=== PATIENT | male | born 1955 | race Caucasian/White ===

== ENCOUNTER → 2016-04-09 | Outpatient (CLI) | payer BC ==
--- NOTE | 2016-04-09 15:57 | DIAGNOSTIC IMAGING REPORT ---
CHEST 2 VIEWS ROUTINE CLINICAL HISTORY: R05 cough. Dyspnea. COMPARISON STUDY: No previous studies for comparison. FINDINGS: The bones soft tissues and hemidiaphragms are normal. The cardiomediastinal silhouette is normal. The lungs are clear. The pulmonary vasculature is normal. IMPRESSION: Negative chest. Electronically signed by: Mack Willard M.D. 04/09/2016 3:56 PM Dictated Date/Time: 04/09/2016 3:55 PM
[2016-04-09 16:27] LABS: BASO % 0.2 %; BASO ABS # 0.01 K/uL (0-0.2); COMPLETE YES; HEMATOCRIT 41.9 % (42-52); IG% 0.2 %; LYMPH % 42.1 %; LYMPH ABS # 2.67 K/uL (1.2-3.4); MEAN CELL VOLUME 85.7 fL (80-100); MEAN CORPUSCULAR HEMOGLOBIN 29.9 pg (25-34); MEAN CORPUSCULAR HGB CONC 34.8 g/dl (32-36); MEAN PLATELET VOLUME 9.3 fL (7.4-10.4); MONO % 6.9 %; NEUT % 47.6 %; PLATELET COUNT 189 K/uL (130-400); RED BLOOD COUNT 4.89 M/uL (4.7-6.1); WHITE BLOOD COUNT 6.34 K/uL (4.8-10.8)
== END | disposition home or self-care (01) ==
LOC: C.LAB 15:26
PROVIDERS: ATTEND Family Medicine
DX: R05 Cough (principal)

== ENCOUNTER 2021-11-21 09:03 | Inpatient (IN) ==
--- NOTE | 2021-11-21 09:19 | Emergency Department Note ---
Impression & Plan Acute renal failure (ARF), Hypertension, Chest tightness ED Provider Note NAME: MARIOLA NUNEZ AGE: 66 SEX: M : 1955 ARRIVES VIA: Walk-In INFORMANT: Patient, ED PROVIDER(S): Agus Potter MD Chief Complaint: Fatigue, abnormal labs HPI: Patient presents due to concern for abnormal lab work that was done through [facility] cardiology office [place] on Wednesday. Patient was told that he had worsening kidney function. Patient denies any shortness of breath but does have occasional chest tightness which seems to improve with activity as well as taking a big deep breath patient denies any shortness of breath but has had increasing fatigue and worsening lower extremity edema which has not imp roved. The patient has also had persistent elevated blood pressure. Patient has tried to cut out salt from the diet. Patient denies any supplements or stimulants alcohol or tobacco use. The patient does drink 1 cup of coffee. Patient's blood work was done through [facility]. Patient was recently seen due to concern for some leg swelling did have an echo completed which was grossly unremarkable. BNP was slightly elevated. Patient was started on hydrochlorothiazide. Patient reportedly had outpatient blood work recently which showed poor kidney function. At the time of the patient's assessment on November 07 the patient had a BUN/creatinine of 33 and 1.38 respectively. BNP at that time was 151. Patient had normal white count H&H and platelet count. ROS: See HPI for pertinent positives and negatives. A total of 10 systems were reviewed and otherwise negative. Past medical history: See below Surgical history: See below Social history: See below Physical Exam: GENERAL: NAD, wearing a mask, non-toxic. Wearing glasses. EYE EXAM: Normal conjunctiva. PERRL, no anisocoria and EOM's grossly intact w/o pain. NECK: Supple, no nuchal rigidity, no adenopathy, non-tender. No signs of meningismus. FROM of the neck with good chin to chest and neck extension. No stridor. LUNGS: Clear to auscultation. Normal chest wall mechanics. HEART: NSR, no MRG. ABDOMEN: Abdomen soft, non-tender, normo-active bowel sounds, no masses, no rebound or guarding. BACK: No CVA TTP. SKIN: No rashes and no bruising. UPPER EXTREMITIES: Upper extremities are grossly normal. LOWER EXTREMITIES: Grossly normal, 3+ symmetric lower extremity edema with no calf pain or erythema. NEURO EXAM: A&O x3, cranial nerves II-XII grossly intact, normal speech, moves all 4 extremities. Differential diagnoses: Reactive airway disease, pneumonia, pneumothorax, COPD, CHF, infections, cardiac ischemia, pulmonary embolism, musculoskeletal, gastrointestinal, as well as other pathologies. Course: Patient was seen and evaluated the bedside. Full history physical exam was performed. EKG interpreted by me Sinus bradycardia with first-degree AV block, rate of 55, prolonged MD, normal QRS, normal axis. No obvious ST elevations. No significant change from comparison November 07, 2021. Imaging Studies: See Below Cardiac monitoring: An order was placed for continuous cardiac monitoring. The monitor shows a rate of 62 with sinus rhythm. MDM: Patient was seen due to concern for weakness fatigue lower extremity swelling and occasional chest tightness. Blood work was obtained along with an EKG troponin BNP chest x-ray. Patient was seen due to concern for abnormal outpatient blood work. I was able to review this which showed a creatinine of 3.1. The patient's blood work today showed normal white count with mild anemia hemoglobin 13.6 with a normal platelet count. The patient does have hyponatremia noted with elevated BUN and creatinine at 86 and 4.2 respectively. Hypocalcemia noted. The patient was ordered calcium for replete meant. Lipase was elevated but the patient did not complain of any abdominal pain or had no pain to palpation on exam but only some bloating. A CT abdomen pelvis noncontrast was ordered. I did speak to the on- call hospitalist Dr. Dalton and the patient was admitted to the medicine service. COVID-negative. Patient CT abdomen pelvis shows nonspecific perin ephric stranding but no peripancreatic stranding. No kidney or ureteral stones. Pancreas appears grossly normal and enhanced. No evidence of diverticulitis. Past Med/Surg History Medical History History of colon cancer Hypertension Hypoalbuminemia Surgical History (Updated 11/21/21 @ 09:33 by Agus Potter MD) No pertinent past surgical history Social History Smoking Status: Never smoker Second Hand Exposure: No; Do You Dip or Chew Tobacco: No; Tobacco Cessation Education Requested by Patient: No Hx Alcohol Use: No Hx Substance Use: No Preferred Language: Kyrgyz Communication Ability: Effective Design Lead Required: No Beliefs That Will Affect Care: None Current Living Situation: Spouse Current Living Situation Comment: lives with Other Information That Helps Us Care for You: No Feels Safe at Home: Yes Safety Concerns: Feels Safe At This Time Assistive Devices: Glasses Allergies Allergies Allergy/AdvReac Type Severity Reaction Status Date / Time No Known Allergies Allergy Unverified 03/26/13 13:42 Home Meds Home Medications Medication Instructions Recorded Confirmed atorvastatin 40 mg tablet 40 mg PO DAILY 11/21/21 11/21/21 lisinopril 10 mg tablet 10 mg PO DAILY 11/21/21 11/21/21 Previous Rx's Medication Instructions Recorded hydrochlorothiazide 25 mg tablet 25 mg PO DAILY #14 tabs 11/07/21 Results & Data (ED) Vital Signs Vital Signs - 24 hr 11/21/21 09:10 11/21/21 09:33 11/21/21 09:30 Temperature 36.1 C L Temperature Source Temporal Artery Scan Pulse Rate 61 51 L Pulse Rate from SpO2 Sensor Pulse Rhythm Regular Respiratory Rate 16 20 Respiratory Effort / Characteristics Non-Labored Respiratory Depth Normal Blood Pressure 174/99 H 163/101 H Blood Pressure Mean 124 121 Pulse Oximetry 97 97 Oxygen Delivery Method Room Air Room Air Sepsis Recent Fever Within 48 Hours No Sepsis New/Unexplained Change in Mental Status No Sepsis Action Taken by Nursing No Action Required 11/21/21 09:30 11/21/21 10:00 11/21/21 10:00 Temperature Temperature Source Pulse Rate 60 53 L Pulse Rate from SpO2 Sensor 59 L 52 L Pulse Rhythm Respiratory Rate 17 11 L Respiratory Effort / Characteristics Respiratory Depth Blood Pressure 169/119 H Blood Pressure Mean 135 Pulse Oximetry 97 97 Oxygen Delivery Method Sepsis Recent Fever Within 48 Hours Sepsis New/Unexplained Change in Mental Status Sepsis Action Taken by Alf Medications Current Medication List: was personally reviewed by me Laboratory Data Attestation: I reviewed the patient's lab results. Result diagrams: 11/21/21 09:25 11/21/21 09:25 Lab Results 11/21/21 11/21/21 11/21/21 Range/Units 09:25 09:25 09:25 WBC 6.66 (4.8-10.8) K/ul RBC 4.58 L (4.63-6.08) M/uL Hgb 13.6 L (14.0-18.0) g/dl Hct 39.4 L (40.1-51.0) % MCV 86.0 (80.0-100.0) fL MCH 29.7 (25.0-34.0) pg MCHC 34.5 (32.0-36.0) g/dL RDW Std Deviation 39.3 (36.4-46.3) fL RDW Coeff of Perez 12.6 (11.5-14.5) % Plt Count 145 (130-400) K/uL MPV 9.1 L (9.4-12.4) fL Immature Gran % (Auto) 0.2 % Neut % (Auto) 62.6 % Lymph % (Auto) 19.4 % [place] % (Auto) 13.5 % Eos % (Auto) 3.8 % Baso % (Auto) 0.5 % Neut # (Auto) 4.18 (1.4-6.5) K/uL Lymph # (Auto) 1.29 (1.2-3.4) K/uL [place] # (Auto) 0.90 H (0.24-0.82) K/uL Eos # (Auto) 0.25 (0-0.50) K/uL Baso # (Auto) 0.03 (0-0.2) K/uL Immature Gran # (Auto) 0.01 (0.00-0.02) K/uL Sodium 134 L (136-145) mmol/L Potassium 5.1 (3.5-5.1) mmol/L Chloride 105 (98-107) mmol/L Carbon Dioxide 24 (21-32) mmol/L Anion Gap 5 (3-11) BUN 86 H (6-23) mg/dl Creatinine 4.24 H (0.6-1.4) mg/dl Est Cr Clr Drug Dosing 19.9 ml/min Est GFR ( Amer) 15.8 ml/min Est GFR (Non-Af Amer) 13.6 ml/min BUN/Creatinine Ratio 20.3 H (10-20) Glucose 84 (70-99(Fasting)) mg/dl Calcium 7.5 L (8.5-10.1) mg/dl Total Bilirubin 0.2 (0.2-1.0) mg/dl AST 21 (13-39) U/L ALT 19 (7-52) U/L Alkaline Phosphatase 94 (34-104) U/L Troponin I High Sens 12.8 D (0-20) pg/ml B-Natriuretic Peptide 58 (0-100) pg/ml Total Protein 5.7 L (6.0-8.3) gm/dl Albumin 2.5 L (3.4-5.0) gm/dl Globulin 3.2 (2.5-4.0) gm/dl Albumin/Globulin Ratio 0.8 L (0.9-2) Lipase 165 H (11-82) U/L Urine Color Urine Appearance (Clear) Urine pH (4.5-7.5) Ur Specific [place] (1.000-1.030) Urine Protein (Negative) Urine Glucose (UA) (Negative) Urine Ketones (Negative) Urine Blood (Negative) Urine Nitrite (Negative) Urine Bilirubin (Negative) Urine Urobilinogen (Negative) Ur Leukocyte Esterase (Negative) Urine WBC (Auto) (0-5) /hpf Urine RBC (Auto) (0-4) /hpf U Hyaline Cast (Auto) (0-5) /lpf U Epithel Cells (Auto) (0-5) /lpf Urine Bacteria (Auto) (Negative) Ur Renal Epithelial Cell Uric Acid Crystals (None Prsent) Ur Random Creatinine mg/dl U Random Total Protein (0-11.9) mg/dl Ur Random Sodium mmol/L Protein/Creatinin Ratio (0-0.2) 11/21/21 11/21/21 Range/Units 10:22 10:22 WBC (4.8-10.8) K/ul RBC (4.63-6.08) M/uL Hgb (14.0-18.0) g/dl Hct (40.1-51.0) % MCV (80.0-100.0) fL MCH (25.0-34.0) pg MCHC (32.0-36.0) g/dL RDW Std Deviation (36.4-46.3) fL RDW Coeff of Perez (11.5-14.5) % Plt Count (130-400) K/uL MPV (9.4-12.4) fL Immature Gran % (Auto) % Neut % (Auto) % Lymph % (Auto) % [place] % (Auto) % Eos % (Auto) % Baso % (Auto) % Neut # (Auto) (1.4-6.5) K/uL Lymph # (Auto) (1.2-3.4) K/uL [place] # (Auto) (0.24-0.82) K/uL Eos # (Auto) (0-0.50) K/uL Baso # (Auto) (0-0.2) K/uL Immature Gran # (Auto) (0.00-0.02) K/uL Sodium (136-145) mmol/L Potassium (3.5-5.1) mmol/L Chloride (98-107) mmol/L Carbon Dioxide (21-32) mmol/L Anion Gap (3-11) BUN (6-23) mg/dl Creatinine (0.6-1.4) mg/dl Est Cr Clr Drug Dosing ml/min Est GFR ( Amer) ml/min Est GFR (Non-Af Amer) ml/min BUN/Creatinine Ratio (10-20) Glucose (70-99(Fasting)) mg/dl Calcium (8.5-10.1) mg/dl Total Bilirubin (0.2-1.0) mg/dl AST (13-39) U/L ALT (7-52) U/L Alkaline Phosphatase (34-104) U/L Troponin I High Sens (0-20) pg/ml B-Natriuretic Peptide (0-100) pg/ml Total Protein (6.0-8.3) gm/dl Albumin (3.4-5.0) gm/dl Globulin (2.5-4.0) gm/dl Albumin/Globulin Ratio (0.9-2) Lipase (11-82) U/L Urine Color Yellow Urine Appearance Clear (Clear) Urine pH 6.0 (4.5-7.5) Ur Specific [place] 1.010 (1.000-1.030) Urine Protein 4+ H (Negative) Urine Glucose (UA) Negative (Negative) Urine Ketones Negative (Negative) Urine Blood 1+ H (Negative) Urine Nitrite Negative (Negative) Urine Bilirubin Negative (Negative) Urine Urobilinogen Negative (Negative) Ur Leukocyte Esterase Negative (Negative) Urine WBC (Auto) 1-5 (0-5) /hpf Urine RBC (Auto) 5-10 H (0-4) /hpf U Hyaline Cast (Auto) 5-10 H (0-5) /lpf U Epithel Cells (Auto) >30 H (0-5) /lpf Urine Bacteria (Auto) Negative (Negative) Ur Renal Epithelial Cell Not Reportable Uric Acid Crystals Present A (None Prsent) Ur Random Creatinine 66.7 mg/dl U Random Total Protein 727.4 H (0-11.9) mg/dl Ur Random Sodium 34 mmol/L Protein/Creatinin Ratio 10.9 H (0-0.2) Administered Medications Discontinued Medications Calcium Gluconate () 1,000 mg in 60 mls @ 240 mls/hr IV NOW STA Stop: 11/21/21 10:39 Last Infusion: 11/21/21 10:53 Dose: 0 mls/hr Documented By: Admin: 11/21/21 10:35 Dose: 240 mls/hr Documented By: MNE Imaging Data Radiologist's Impression: Chest X-Ray 11/21/21 09:33 XR chest 1V portable HISTORY: Atypical Chest Pain COMPARISON: Chest 11/07/2020. FINDINGS: There are low lung volumes. No focal lung consolidations to suggest a pneumonia. No evidence for pulmonary edema. The cardiac silhouette remains mildly enlarged. No pleural effusions. No pneumothorax. IMPRESSION: No significant change compared to the prior study. No acute process. ACT 112: Negative or not required by law. Electronically signed by: José Miguel Astorga M.D. 11/21/2021 10:03 AM Abdomen/Pelvis CT 11/21/21 10:25 CT SCAN OF THE ABDOMEN AND PELVIS WITHOUT IV CONTRAST CLINICAL HISTORY: Acute renal insufficiency. Elevated lipase. COMPARISON STUDY: No priors. TECHNIQUE: CT scan of the abdomen and pelvis is performed from the lung bases to the proximal femora. Images are reviewed in the axial, sagittal, and coronal planes. IV contrast was not administered for this examination. A dose lowering technique was utilized adhering to the principles of ALARA. CT DOSE: 857.24 mGycm FINDINGS: Lung bases: The heart is mildly enlarged and without pericardial effusion. The lung bases are clear noting bibasilar scarring/atelectasis. There is a tiny hiatal hernia. Liver: The unenhanced liver is normal in size, contour, and attenuation. There is no intrahepatic biliary ductal dilatation. Gallbladder: Unremarkable. Spleen: Normal in size and attenuation. Pancreas: The unenhanced pancreas is grossly unremarkable. The duct is normal in caliber. No peripancreatic fluid is seen. Adrenal glands: Unremarkable. Kidneys: The unenhanced kidneys are normal in size and without hydronephrosis. There are numerous punctate nonobstructing calculi seen bilaterally. No ureteral stone is seen. There is no evidence of contour deforming renal mass lesion. Nonspecific perinephric stranding is seen bilaterally. Abdominal vasculature: The abdominal aorta is normal in course and caliber. Bowel: There is mild colonic diverticulosis without CT evidence of acute diverticulitis. Mild fecal retention is seen throughout the colon. The appendix is not identified and reported surgically absent. Peritoneum: There is no intraperitoneal free air or abdominal ascites. There is a fat-containing umbilical hernia. Lymphadenopathy: None. Pelvic viscera: The bladder, prostate, and seminal vesicles are normal as visualized. There is a fat-containing left inguinal hernia. Skeletal structures: No lytic or blastic lesions are seen. IMPRESSION: 1. There are punctate nonobstructing renal calculi seen bilaterally. 2. There is no ureteral stone or hydronephrosis. 3. Nonspecific peripancreatic stranding is seen bilaterally. Correlate with clinical findings and urinalysis. 4. The unenhanced pancreas is normal as imaged. 5. Mild colonic diverticulosis without CT evidence of acute diverticulitis. 6. Additional findings as above. ACT 112: Negative or not required by law. Electronically signed by: Macario Torrez M.D. 11/21/2021 11:19 AM Discharge Plan Visit Data Chief Complaint: Abnormal Labs/Diagnostic Testing Stated Complaint: RENAL ISSUES ED Provider: Agus Potter Discharge Problem: Acute renal failure (ARF), Hypertension, Chest tightness Patient Disposition: Admitted As Inpatient Discharge Instructions Interventions: ED Discharge Assessment Last Done: 11/21/21 14:15
[2021-11-21 09:44] LABS: Basophils # (auto) 0.03 K/uL (0-0.2); Basophils % (auto) 0.5 %; Eosinophils # (auto) 0.25 K/uL (0-0.50); Eosinophils % (auto) 3.8 %; Hematocrit (blood only) 39.4 % (40.1-51.0); Hemoglobin 13.6 g/dl (14.0-18.0); Immature Granulocytes # (auto) 0.01 K/uL (0.00-0.02); Immature Granulocytes % (auto) 0.2 %; Lymphocytes # (auto) 1.29 K/uL (1.2-3.4); Lymphocytes % (auto) 19.4 %; Mean Corpuscular Hemoglobin 29.7 pg (25.0-34.0); Mean Corpuscular Hgb Conc 34.5 g/dL (32.0-36.0); Mean Platelet Volume 9.1 fL (9.4-12.4); Monocytes % (auto) 13.5 %; Neutrophils # (auto) 4.18 K/uL (1.4-6.5); Neutrophils % (auto) 62.6 %; Platelet Count 145 K/uL (130-400); RDW Coefficient of Variation 12.6 % (11.5-14.5); RDW Standard Deviation 39.3 fL (36.4-46.3); Red Blood Count 4.58 M/uL (4.63-6.08); White Blood Count 6.66 K/ul (4.8-10.8)
--- NOTE | 2021-11-21 10:04 | XRay Report ---
XR chest 1V portable HISTORY: Atypical Chest Pain COMPARISON: Chest 11/07/2020. FINDINGS: There are low lung volumes. No focal lung consolidations to suggest a pneumonia. No evidenc e for pulmonary edema. The cardiac silhouette remains mildly enlarged. No pleural effusions. No pneum othorax. IMPRESSION: No significant change compared to the prior study. No acute process. ACT 112: Negative or not required by law. Electronically signed by: José Miguel Astorga M.D. 11/21/2021 10:03 AM
[2021-11-21 10:09] LABS: Albumin Globulin Ratio 0.8 (0.9-2); Albumin Level 2.5 gm/dl (3.4-5.0); BUN Creatinine Ratio 20.3 (10-20); Bilirubin,Total 0.2 mg/dl (0.2-1.0); Calcium 7.5 mg/dl (8.5-10.1); Creatinine Clr Calc Pharmacy 19.9 ml/min; Est GFR (African American) 15.8 ml/min; Est GFR (Non-African American) 13.6 ml/min; Globulin 3.2 gm/dl (2.5-4.0); Potassium 5.1 mmol/L (3.5-5.1); Total Protein 5.7 gm/dl (6.0-8.3)
[2021-11-21 10:11] LABS: Troponin I High Sensitivity 12.8 pg/ml (0-20)
[2021-11-21] MEDS ORDERED: CALCIUM GLUCONATE 1,000 MG/60 ML BAG IV STA (10:25)
[2021-11-21 10:40] LABS: Appearance Urine Clear (Clear); Bacteria Urine Automated Negative (Negative); Bilirubin Urine Negative (Negative); Blood Urine 1+ (Negative); Color Urine Yellow; Epithelial Cell Urine Auto >30 /lpf (0-5); Glucose Urine UA Negative (Negative); Ketones Urine Negative (Negative); Leukocyte Esterase Urine Negative (Negative); Nitrite Urine Negative (Negative); Protein Urine 4+ (Negative); Urobilinogen Urine Negative (Negative)
--- NOTE | 2021-11-21 10:40 | History & Physical Report ---
Date of Service November 21, 2021 Assessment & Plan (1) Acute kidney injury: Plan: Fluid status difficult to determine: He has some pitting lower extremity edema and noted his overall body weight is up with proteinuria and hypertension consistent with nephrotic syndrome. However Cr worse with HCTZ, BNP down, mucus membranes are dry and only pitting edema is in his lower extremities suggesting some intravascular depletion. Discussed with Dr Johnson and will defer his fluid management to nephrology. No obstructive uropathy seen on CT A/P Suspected nephrotic syndrome - will defer need for biopsy and further workup for this to nephrology. No exacerbating cause found in the last two weeks but suspect he has had some proteinuria since COVID with his frothy urine. Dipstick showing proteinuria 30 mg/dl on October 06, 2021 but no prior urine analysis prior to [facility] in [facility] or [facility] [address]. Hold lisinopril, HCTZ and Celebrex No urgent need for dialysis Consult nephrology (2) Proteinuria: Plan: As above (3) Hypertension: Plan: Will start amlodipine pending nephrology review if not starting on diuretics. (4) Bilateral edema of lower extremity: Plan: Suspected nephrotic syndrome +/- venous insufficiency Continue PABLO arceo (5) History of colon cancer: Plan VTE Prophylaxis - heparin 5000 units SQ BID Diet - dialysis renal Disposition - admit to med/tele Admission and Anticipated Discharge Date Admission Date: November 21, 2021 History of Present Illness Chief Complaint: Acute renal failure Primary Care Provider: Ableardo Kirkland MD Mack Hopper is a 66 year old male who presents to the ER with bilateral extremity edema, increasing fatigue, shortness of breath on exertion and chest tightness. He was sent in to the ER by his communications programmer due to worsening renal function. His symptoms have been present and getting worse for the last 2 weeks despite decreasing his salt intake. He also started taking his blood pressure measurements at home and they have been elevated since 2 weeks ago. He was recently seen in the emergency room November 07 for bilateral lower extremity swelling, intermittent chest pain and cough. TTE showed LVEF 60-65% with no significant valve pathology and no regional wall abnormalities. Creatinine was 1.38 at that time. He was started on hydrochlorothiazide 25mg PO daily (ran out two days ago) for the lower extremity edema although no significant pulmonary edema was noted on CXR at that time. He followed up with cardiology 2 days ago and did not feel his lower extremity edema was due to cardiac issue with his weight being up 15 lb. On repeat labs on November 19 his creatinine had increased to 3.19 with BUN 74 while taking the hydrochlorothiazide. Symptomatically he has been getting worse with increasing fatigue, edema, weight and decreased urination. He reports using Celebrex intermittently for chronic back pain - stopped taking this on Wednesday due to worsening renal function. Before then he would take it 2-3 times a week. This is on a background of having COVID-19 pneumonia in August where he was symptomatic for 10 days. He was given Paxlovid at that time. He reports having frothy urine following this which has become more prominent the last 2 weeks. Apart from the hydrochlorothiazide the only new medication he has started was glucosamine which he started two weeks ago - however he has taken this before. Allergies Allergy/AdvReac Type Severity Reaction Status Date / Time No Known Allergies Allergy Unverified 03/26/13 13:42 Home Medications Medication Instructions Recorded Confirmed Type hydrochlorothiazide 25 mg tablet 25 mg PO DAILY #14 tabs 11/07/21 11/21/21 Rx atorvastatin 40 mg tablet 40 mg PO DAILY 11/21/21 11/21/21 History lisinopril 10 mg tablet 10 mg PO DAILY 11/21/21 11/21/21 History Past Med/Surg History Medical History History of colon cancer Hypertension Hypoalbuminemia Surgical History No pertinent past surgical history Social History Smoking Status: Never smoker Second Hand Exposure: No; Do You Dip or Chew Tobacco: No; Tobacco Cessation Education Requested by Patient: No Hx Alcohol Use: No Hx Substance Use: No Preferred Language: Japanese Communication Ability: Effective Audio Video Tech Required: No Beliefs That Will Affect Care: None Current Living Situation: Spouse Current Living Situation Comment: lives with Other Information That Helps Us Care for You: No Feels Safe at Home: Yes Safety Concerns: Feels Safe At This Time Assistive Devices: Glasses Review of Systems Review of Systems: All systems reviewed & are unremarkable except as noted in Subjective (He does note knees and wrist joints started to hurt 2 months ago but this is not unusual for him) Physical Exam Constitutional: WD/WN, vitals as above Eyes: PERRL, conjunctivae normal, anicteric sclerae ENMT: Mouth: + dry oral mucous membranes Neck: trachea midline, no thyromegaly Respiratory: normal respiratory effort, lungs clear to auscultation Cardiovascular: Rate/Rhythm: regular rate and regular rhythm Heart Sounds: no murmur Extremities: normal capillary refill and + pedal edema (pitting 2+ bilateral equal to knees); no calf tenderness Gastrointestinal (Abdomen): normal bowel sounds, soft, nontender, no hepatosplenomegaly Musculoskeletal: no cyanosis or clubbing, extremities motor strength 5/5 Skin: no rashes, warm and dry Neurologic: moves all extremities and awake; no focal motor deficits and not confused Psychiatric: A+Ox3, euthymic affect Genitourinary: no CVA tenderness Results & Data Results & Data ([facility]) Vital Signs (Past 12 Hours) Vital Signs Temp Pulse Resp BP Pulse Ox O2 Del Method 11/21/21 10:00 53 L 11 L 97 11/21/21 10:00 169/119 H 11/21/21 09:30 60 17 97 11/21/21 09:30 163/101 H 11/21/21 09:33 51 L 20 97 Room Air 11/21/21 09:10 36.1 C L 61 16 174/99 H 97 Room Air Laboratory Results Abnormal lab results 11/21/21 11/21/21 11/21/21 Range/Units 09:25 09:25 10:22 RBC 4.58 L (4.63-6.08) M/uL Hgb 13.6 L (14.0-18.0) g/dl Hct 39.4 L (40.1-51.0) % MPV 9.1 L (9.4-12.4) fL [place] # (Auto) 0.90 H (0.24-0.82) K/uL Sodium 134 L (136-145) mmol/L BUN 86 H (6-23) mg/dl Creatinine 4.24 H (0.6-1.4) mg/dl BUN/Creatinine Ratio 20.3 H (10-20) Calcium 7.5 L (8.5-10.1) mg/dl Total Protein 5.7 L (6.0-8.3) gm/dl Albumin 2.5 L (3.4-5.0) gm/dl Albumin/Globulin Ratio 0.8 L (0.9-2) Lipase 165 H (11-82) U/L Urine Protein 4+ H (Negative) Urine Blood 1+ H (Negative) Diagnostic Findings XR chest 1V portable HISTORY: Atypical Chest Pain COMPARISON: Chest 11/07/2020. FINDINGS: There are low lung volumes. No focal lung consolidations to suggest a pneumonia. No evidence for pulmonary edema. The cardiac silhouette remains mildly enlarged. No pleural effusions. No pneumothorax. IMPRESSION: No significant change compared to the prior study. No acute process. Medications Administered ER Medications Given: Calcium gluconate 1000mg IV ECG Indication: chest pain Rate (beats per minute): 55 Rhythm: sinus bradycardia Findings: + 1st degree AV block; no acute ischemic change (low voltage QRS) Comparison ECG Date: from (November 07, 2021) Change: no significant change Code Status & VTE Plan Code Status Full VTE Prophylaxis Plan VTE Prophylaxis will be ordered: Yes PG Care Time/CCT Total # of Minutes Spent Total Time Spent with Patient: Total time spent is greater than 50% in coordination of care (as documented) at patient's floor/unit and/or counseling patient: Coding Level of Care Code 94887 Initial Inpt Care Lvl 3 Diagnoses Acute kidney injury N17.9 Proteinuria R80.9 Hypertension I10 Bilateral edema of lower extremity R60.0 History of colon cancer Z85.038
[2021-11-21 10:55] LABS: Uric Acid Crystals Urine Present (None Prsent)
--- NOTE | 2021-11-21 11:21 | CT Scan Report ---
CT SCAN OF THE ABDOMEN AND PELVIS WITHOUT IV CONTRAST CLINICAL HISTORY: Acute renal insufficiency. Elevated lipase. COMPARISON STUDY: No priors. TECHNIQUE: CT scan of the abdomen and pelvis is performed from the lung bases to the proximal femora. Images are reviewed in the axial, sagittal, and coronal planes. IV contrast was not administered for this examination. A dose lowering technique was utilized adhering to the principles of ALARA. CT DOSE: 857.24 mGycm FINDINGS: Lung bases: The heart is mildly enlarged and without pericardial effusion. The lung bases are clear n oting bibasilar scarring/atelectasis. There is a tiny hiatal hernia. Liver: The unenhanced liver is normal in size, contour, and attenuation. There is no intrahepatic hernandez iary ductal dilatation. Gallbladder: Unremarkable. Spleen: Normal in size and attenuation. Pancreas: The unenhanced pancreas is grossly unremarkable. The duct is normal in caliber. No peripanc reatic fluid is seen. Adrenal glands: Unremarkable. Kidneys: The unenhanced kidneys are normal in size and without hydronephrosis. There are numerous pun ctate nonobstructing calculi seen bilaterally. No ureteral stone is seen. There is no evidence of con tour deforming renal mass lesion. Nonspecific perinephric stranding is seen bilaterally. Abdominal vasculature: The abdominal aorta is normal in course and caliber. Bowel: There is mild colonic diverticulosis without CT evidence of acute diverticulitis. Mild fecal r etention is seen throughout the colon. The appendix is not identified and reported surgically absent . Peritoneum: There is no intraperitoneal free air or abdominal ascites. There is a fat-containing umbi lical hernia. Lymphadenopathy: None. Pelvic viscera: The bladder, prostate, and seminal vesicles are normal as visualized. There is a fat- containing left inguinal hernia. Skeletal structures: No lytic or blastic lesions are seen. IMPRESSION: 1. There are punctate nonobstructing renal calculi seen bilaterally. 2. There is no ureteral stone or hydronephrosis. 3. Nonspecific peripancreatic stranding is seen bilaterally. Correlate with clinical findings and uri nalysis. 4. The unenhanced pancreas is normal as imaged. 5. Mild colonic diverticulosis without CT evidence of acute diverticulitis. 6. Additional findings as above. ACT 112: Negative or not required by law. Electronically signed by: Macario Torrez M.D. 11/21/2021 11:19 AM
[2021-11-21 13:58] LABS: Creatinine Urine Random 66.7 mg/dl; Protein Creatinine Ratio Urine 10.9 (0-0.2); Total Protein Urine Random 727.4 mg/dl (0-11.9)
[2021-11-21] MEDS: ACETAMINOPHEN 325 MG TAB PO PRN (17:02)
--- NOTE | 2021-11-21 17:52 | Nephrology Consultation ---
Date of Consultation November 21, 2021 Assessment & Plan (1) Proteinuria: (2) Acute kidney injury: (3) Bilateral edema of lower extremity: (4) Hypertension: Plan Mack presents with findings of nephrotic syndrome including proteinuria, hypoalbuminemia, and accelerated BP readings. Urine microscopy also notable for hyaline casts and RBCs. He has marked NICHOLAS. Thankfully, he has been non-oliguric. Serum electrolytes are normal. There is no emergent indication for dialysis. ACEi will be held. Volume status demonstrates increased total body water consistent with 3rd spacing fluids in setting of nephrosis but to avoid confounding NICHOLAS with decreased EAV, I have opted to hold diuretics. Mack has NICHOLAS with predominately nephrosis but I cannot exclude a nephritic component. Onset of symptoms following COVID and history complicated by some NSAID use. There is a very wide differential. This includes AIN. However, clinical presentation consistent with membranous or minimal change. I would not exclude ANCA mediated disease or plasma cell disorders. Less likely to be systemic lupus or cryoglobulin mediated. Post infectious GN remains a possibility. Extensive serologic evaluation has been requested today. This includes JUSTIN, ANCA, ESR, C3/C4, SIEP, UPEP, hepatitis B and C serologies. AM labs to include lipid profile. Coags will also be checked. Random urine protein demonstrating 10 g/g proteinuria. I will quantify with 24 hour which will be sent for PEP. Renal duplex requested to help exclude renal vein thrombosis. CT scan reviewed. Kidneys are unobstructed. Due to the degree of renal insufficiency, I would opt to start early aggressive steroid therapy. Presentation predominately nephrotic, start with prednisone 60 mg daily now. Mack is aware that kidney biopsy may ultimately be required to make a definitive diagnosis. For hypertension, a low sodium diet has been provided. HCTZ and lisinopril held. Start amlodipine now. Baseline creatinine 1.38 mg/dL. History of Present Illness Reason for Consultation: NICHOLAS Requesting Physician: Elías Dalton MD Attending Physician: Elías Dalton MD History of Present Illness Mr. Mack Hopper is a 66 year-old male with a history of hypertension, OA/DJD, and hyperlipidemia. He was referred to the ER at [facility] today for evaluation of an elevated serum creatinine. Laboratory studies obtained by BRENDAN Davison following recent evaluation in the cardiology clinic. Mack had been referred to the clinic by his PCP (Dr. Olu Kirkland) for evaluation of fluid retention in his legs. Mack reports sudden onset of lower extremity edema a few weeks ago. He has not had similar symptoms in the past. He presented to the ER at [facility] for evaluation on November 07. Evaluation notable for a serum creatinine of 1.38 mg/dL, serum albumin of 2.6 g/dL,mildly elevated BNP, and chest X-ray demonstrating mild evolving vascular congestion. BP elevated at >180/90 mmHg during the evaluation. Mack was discharged from the ER with close outpatient cardiology follow up arranged. He was then started on HCTZ. He has been taking 25 mg daily since that time with some mild improvement. TTE reviewed which demonstrated normal LV size and function. Mild concentric LVH. No significant valvular heart disease noted. Normal right sided pressures. Mack has been maintained on lisinopril 10 mg daily for hypertension. HCTZ recently added but BP remained above goal. No specifically symptomatic accele rated symptoms reported. Atorvastatin recently added by his PCP for hyperlipidemia. In July, Mack was diagnosed with COVID. He reported some respiratory symptoms which resolved quickly with predominately upper respiratory symptoms, including sinus congestion. No hemoptysis. He was treated with Paxlovid. Some mild chest congestion persisted. Mack developed persistent foamy urine during recovery. F oamy urine has remained a concer. He has also noted some persistent generalized joint pains, particularly involving the hands and knees. He did not specifically endorse synovitis or effusions. He noted some increased pain across the lower back in the SI area within the past ~1 week. Some discomfort persists in this area. He did not specifically endorse any flank pain. Mack has used Celebrex intermittently for joint pains and notes that frequency of use has recently increased. He was taking ~200 mg QHS 3-4 x per week. He does not report any other NSAID use. No recent antibiotic use reported. He has not noticed any facial edema. He has had intermittent swelling in his hands. LE edema improved slightly following the recent addition of HCTZ. He did not notice any change in urine output but reports that he seems slightly less since he was admitted to the hospital today. He does report some mild LUTS which include frequency. He did not describe any gross hematuria or cola colored urine. Mack also reports a rash on his back extending along the flanks predominately on his left side. There are follicular lesions since to a rash he has experienced in the past. He has treated this previously with Hibiclens. Allergies Allergy/AdvReac Type Severity Reaction Status Date / Time No Known Allergies Allergy Unverified 03/26/13 13:42 Home Medications Medication Instructions Recorded Confirmed Type hydrochlorothiazide 25 mg tablet 25 mg PO DAILY #14 tabs 11/07/21 11/21/21 Rx atorvastatin 40 mg tablet 40 mg PO DAILY 11/21/21 11/21/21 History lisinopril 10 mg tablet 10 mg PO DAILY 11/21/21 11/21/21 History Patient History Medical History History of colon cancer Hypertension Hypoalbuminemia Surgical History No pertinent past surgical history Social History Smoking Status: Never smoker Second Hand Exposure: No; Do You Dip or Chew Tobacco: No; Tobacco Cessation Education Requested by Patient: No Hx Alcohol Use: No Hx Substance Use: No Preferred Language: Armenian Communication Ability: Effective Financial Operations Consultant Required: No Beliefs That Will Affect Care: None Current Living Situation: Spouse Current Living Situation Comment: lives with Other Information That Helps Us Care for You: No Feels Safe at Home: Yes Safety Concerns: Feels Safe At This Time Assistive Devices: Glasses Review of Systems Review of Systems: All systems reviewed & are unremarkable except as noted in HPI & below Physical Exam Constitutional: well developed; no acute distress Eyes: + anicteric sclerae; no corneal abnormality Neck: normal visual inspection and trachea midline Respiratory: normal respiratory effort Auscultation: lungs clear to auscultation bilaterally Cardiovascular: Rate/Rhythm: regular rate Heart Sounds: normal S1 and normal S2 Extremities: + edema; no calf tenderness Musculoskeletal: Extremities: no cyanosis and no clubbing Skin: normal turgor and + rash (follicular lesions - NOT vesicles and no pustules - no palpable purpura.) Neurologic: Motor/Sensory: no tremor and no asterixis Psychiatric: Orientation: alert and oriented x 3 Results & Data ([facility]) Vital Signs (Past 12 Hours) Vital Signs Temp Pulse Pulse Pulse Resp BP BP 11/21/21 15:40 80 11/21/21 15:35 11/21/21 15:35 36.5 C 63 18 164/89 H 11/21/21 15:00 88 18 155/96 H 11/21/21 14:30 66 18 187/117 H 11/21/21 12:30 59 L 18 157/101 H 11/21/21 10:00 53 L 11 L 11/21/21 10:00 169/119 H 11/21/21 09:30 60 17 11/21/21 09:30 163/101 H 11/21/21 09:33 51 L 20 11/21/21 09:10 36.1 C L 61 16 174/99 H Pulse Ox O2 Del Method 11/21/21 15:40 11/21/21 15:35 Room Air 11/21/21 15:35 97 Room Air 11/21/21 15:00 98 Room Air 11/21/21 14:30 98 Room Air 11/21/21 12:30 99 Room Air 11/21/21 10:00 97 11/21/21 10:00 11/21/21 09:30 97 11/21/21 09:30 11/21/21 09:33 97 Room Air 11/21/21 09:10 97 Room Air Laboratory Results Laboratory Results - last 24 hr 11/21/21 11/21/21 11/21/21 09:25 09:25 09:25 WBC 6.66 RBC 4.58 L Hgb 13.6 L Hct 39.4 L MCV 86.0 MCH 29.7 MCHC 34.5 RDW Std Deviation 39.3 RDW Coeff of Perez 12.6 Plt Count 145 MPV 9.1 L Immature Gran % (Auto) 0.2 Neut % (Auto) 62.6 Lymph % (Auto) 19.4 Sanders % (Auto) 13.5 Eos % (Auto) 3.8 Baso % (Auto) 0.5 Neut # (Auto) 4.18 Lymph # (Auto) 1.29 Sanders # (Auto) 0.90 H Eos # (Auto) 0.25 Baso # (Auto) 0.03 Immature Gran # (Auto) 0.01 Sodium 134 L Potassium 5.1 Chloride 105 Carbon Dioxide 24 Anion Gap 5 BUN 86 H Creatinine 4.24 H Est Cr Clr Drug Dosing 19.9 Est GFR ( Amer) 15.8 Est GFR (Non-Af Amer) 13.6 BUN/Creatinine Ratio 20.3 H Glucose 84 Calcium 7.5 L Total Bilirubin 0.2 AST 21 ALT 19 Alkaline Phosphatase 94 Troponin I High Sens 12.8 D B-Natriuretic Peptide 58 Total Protein 5.7 L Albumin 2.5 L Globulin 3.2 Albumin/Globulin Ratio 0.8 L Lipase 165 H Urine Color Urine Appearance Urine pH Ur Specific [place] Urine Protein Urine Glucose (UA) Urine Ketones Urine Blood Urine Nitrite Urine Bilirubin Urine Urobilinogen Ur Leukocyte Esterase Urine WBC (Auto) Urine RBC (Auto) U Hyaline Cast (Auto) U Epithel Cells (Auto) Urine Bacteria (Auto) Ur Renal Epithelial Cell Uric Acid Crystals Ur Random Creatinine U Random Total Protein Ur Random Sodium Protein/Creatinin Ratio SARS-CoV-2, RNA, NAAT 11/21/21 11/21/21 11/21/21 10:22 10:22 12:31 WBC RBC Hgb Hct MCV MCH MCHC RDW Std Deviation RDW Coeff of Perez Plt Count MPV Immature Gran % (Auto) Neut % (Auto) Lymph % (Auto) Sanders % (Auto) Eos % (Auto) Baso % (Auto) Neut # (Auto) Lymph # (Auto) Sanders # (Auto) Eos # (Auto) Baso # (Auto) Immature Gran # (Auto) Sodium Potassium Chloride Carbon Dioxide Anion Gap BUN Creatinine Est Cr Clr Drug Dosing Est GFR ( Amer) Est GFR (Non-Af Amer) BUN/Creatinine Ratio Glucose Calcium Total Bilirubin AST ALT Alkaline Phosphatase Troponin I High Sens B-Natriuretic Peptide Total Protein Albumin Globulin Albumin/Globulin Ratio Lipase Urine Color Yellow Urine Appearance Clear Urine pH 6.0 Ur Specific [place] 1.010 Urine Protein 4+ H Urine Glucose (UA) Negative Urine Ketones Negative Urine Blood 1+ H Urine Nitrite Negative Urine Bilirubin Negative Urine Urobilinogen Negative Ur Leukocyte Esterase Negative Urine WBC (Auto) 1-5 Urine RBC (Auto) 5-10 H U Hyaline Cast (Auto) 5-10 H U Epithel Cells (Auto) >30 H Urine Bacteria (Auto) Negative Ur Renal Epithelial Cell Not Reportable Uric Acid Crystals Present A Ur Random Creatinine 66.7 U Random Total Protein 727.4 H Ur Random Sodium 34 Protein/Creatinin Ratio 10.9 H SARS-CoV-2, RNA, NAAT NEGATIVE Diagnostic Findings CT SCAN OF THE ABDOMEN AND PELVIS WITHOUT IV CONTRAST FINDINGS: Lung bases: The heart is mildly enlarged and without pericardial effusion. The lung bases are clear noting bibasilar scarring/atelectasis. There is a tiny hiatal hernia. Liver: The unenhanced liver is normal in size, contour, and attenuation. There i s no intrahepatic biliary ductal dilatation. Gallbladder: Unremarkable. Spleen: Normal in size and attenuation. Pancreas: The unenhanced pancreas is grossly unremarkable. The duct is normal in caliber. No peripancreatic fluid is seen. Adrenal glands: Unremarkable. Kidneys: The unenhanced kidneys are normal in size and without hydronephrosis. There are numerous punctate nonobstructing calculi seen bilaterally. No ureteral stone is seen. There is no evidence of contour deforming renal mass lesion. Nonspecific perinephric stranding is seen bilaterally. Abdominal vasculature: The abdominal aorta is normal in course and caliber. Bowel: There is mild colonic diverticulosis without CT evidence of acute diverticulitis. Mild fecal retention is seen throughout the colon. The appendix is not identified and reported surgically absent. Peritoneum: There is no intraperitoneal free air or abdominal ascites. There is a fat-containing umbilical hernia. Lymphadenopathy: None. Pelvic viscera: The bladder, prostate, and seminal vesicles are normal as visualized. There is a fat-containing left inguinal hernia. Skeletal structures: No lytic or blastic lesions are seen. IMPRESSION: 1. There are punctate nonobstructing renal calculi seen bilaterally. 2. There is no ureteral stone or hydronephrosis. 3. Nonspecific peripancreatic stranding is seen bilaterally. Correlate with clinical findings and urinalysis. 4. The unenhanced pancreas is normal as imaged. 5. Mild colonic diverticulosis without CT evidence of acute diverticulitis. PG Care Time/CCT Total # of Minutes Spent Total Time Spent with Patient: Total time spent is greater than 50% in coordination of care (as documented) at patient's floor/unit and/or counseling patient: Coding Level of Care Code 94632 Inpt Consult Level 5 Diagnoses Proteinuria R80.9 Acute kidney injury N17.9 Bilateral edema of lower extremity R60.0 Hypertension I10
[2021-11-21] MEDS ORDERED: predniSONE 20 MG TAB PO STA (17:59)
[2021-11-21] MEDS ORDERED: amLODIPine BESYLATE 5 MG TAB PO ONE (18:00)
[2021-11-21 18:46] LABS: Partial Thromboplastin Ratio 1.1; Partial Thromboplastin Time 29.1 Seconds (21.0-31.0); Prothrombin Time 10.4 Seconds (9.0-12.0)
--- NOTE | 2021-11-21 22:06 | Electrocardiogram Report ---
Test Reason : Blood Pressure : / mmHG Vent. Rate : 055 BPM Atrial Rate : 055 BPM P-R Int : 244 ms QRS Dur : 082 ms QT Int : 396 ms P-R-T Axes : 066 -15 047 degrees QTc Int : 378 ms Sinus bradycardia with 1st degree A-V block Low voltage QRS Cannot rule out Septal infarct (cited on or before 07-NOV-2021) Abnormal ECG When compared with ECG of 07-NOV-2021 10:31, No significant change was found Confirmed by Jayesh Avila ([id number]) on 11/21/2021 10:06:06 PM Referred By: Confirmed By:Jayesh Avila
--- NOTE | 2021-11-22 07:45 | Ultrasound Report ---
DOPPLER ULTRASOUND OF THE RENAL ARTERIES CLINICAL HISTORY: Nephrotic syndrome. Acute renal insufficiency. COMPARISON STUDY: Abdominal CT dated 11/21/2021. TECHNIQUE: Doppler sonography of the renal arteries was performed to assess renal artery stenosis. Im ages are reviewed in the transverse and longitudinal planes. FINDINGS: The kidneys appear normal in size and echotexture. The right kidney measures 10.1 cm in length and th e left kidney measures 10.3 cm in length. There is no hydronephrosis. On the right, intrarenal arterial resistive indices range from 0.61 to 0.67. Intrarenal arterial wave forms are normal with brisk upstrokes. The right renal arterial waveform is normal, and velocities wi thin the right renal artery measure up to 188 cm/sec. The right renal vein is patent. On the left, intrarenal arterial resistive indices range from 0.56 to 0.72. Intrarenal arterial wave forms are normal with brisk upstrokes. The left renal arterial waveform is normal, and velocities wit hin the left renal artery measure up to 93 cm/sec. The left renal vein is patent. The abdominal aorta is patent. Velocities within the abdominal aorta measure up to 92 cm/s. IMPRESSION: There is no sonographic evidence of renal artery stenosis. ACT 112: Negative or not required by law. Electronically signed by: Macario Torrez M.D. 11/22/2021 7:43 AM
[2021-11-22] MEDS: ATORVASTATIN 40 MG TAB PO SCH (08:22)
[2021-11-22] MEDS: amLODIPine BESYLATE 5 MG TAB PO SCH (08:23)
[2021-11-22] MEDS: ACETAMINOPHEN 325 MG TAB PO PRN (08:24)
[2021-11-22 08:54] LABS: Albumin Level 2.4 gm/dl (3.4-5.0); BUN Creatinine Ratio 18.8 (10-20); Calcium 7.8 mg/dl (8.5-10.1); Chol HDL Ratio 3.3 (0-5); Creatinine Clr Calc Pharmacy 16.3 ml/min; Est GFR (African American) 12.6 ml/min; Est GFR (Non-African American) 10.9 ml/min; Phosphorus 6.5 mg/dl (2.5-4.9); Potassium 5.6 mmol/L (3.5-5.1)
--- NOTE | 2021-11-22 08:59 | Nephrology Progress Note ---
Date of Service November 22, 2021 Assessment & Plan (1) Acute kidney injury: Plan: * RPGN - nephrotic syndrome w/ abrupt decline in kidney function over last 2 weeks. Baseline Cr 1.38 * Urine sediment w/ only low grade hematuria, no cellular casts * UPCR 10.0 * Patient had been taking Celebrex 3x/week due to arthralgias associated w/ recent COVID infection (08/2021). Lisinopril and Celebrex have been stopped * Patient has a remote h/o colon CA * DDx is broad and includes minimal change disease, membranous nephropathy, ANCA vasculitis, plasma cell disorder. Patient has no other clinical signs of active vasculitis. Given time course of recent COVID infection, clinically favor a diagnosis of COVAN (collapsing FSGS) or NSAID related AIN (less likely) * Serologic studies are pending * Discussed role of renal biopsy w/ patient and family today. Will pursue biopsy by VIR as outpatient * Will provide Solumedrol 500 mg IV daily x 3 days, then transition to po Prednisone * Discussed probable need for PODOPEDIATRICIAN within the next 72 hours. Patient is agreeable to starting dialysis if needed * Will consult Vascular Surgery for IJ THC placement on Wednesday (ate breakfast this am) if kidney function fails to improve/stabilize (2) Hyperkalemia: Plan: * Renal, low K diet * Will provide Lokelma 10 g po x 1 and recheck PRP at 1600 hrs (3) Metabolic acidosis: Plan: * Will provide NaHCO3 100 mEq IV x1 this am. Recheck PRP at 1600 hrs (4) Hypertension: Plan: * BP is acceptable. Continue to hold Lisinopril Admission and Anticipated Discharge Date Admission Date: November 21, 2021 Subjective Mr. Hopper was evaluated in his hospital room this morning. He currently denies fever, angina, dyspnea or uremic symptoms Review of Systems Constitutional: no fever Eyes: no problem reported Ear, Nose, Mouth, Throat: no problem reported Respiratory: no dyspnea Cardiovascular: no chest pain and no dyspnea at rest Gastrointestinal: no abdominal pain, no vomiting and no diarrhea/loose stools Musculoskeletal: no problem reported Physical Exam Constitutional: WD/WN, vitals as above Eyes: PERRL, conjunctivae normal, anicteric sclerae ENMT: external ear and nose normal, oropharynx normal Neck: trachea midline, no thyromegaly Respiratory: normal respiratory effort, lungs clear to auscultation Cardiovascular: Rate/Rhythm: regular rate and regular rhythm Gastrointestinal (Abdomen): normal bowel sounds, soft, nontender, no hepatosplenomegaly Neurologic: Speech / Cognition: normal cognition Results & Data ([facility]) Vital Signs (Past 12 Hours) Vital Signs Temp Pulse Pulse Pulse Resp BP BP 11/22/21 07:47 36.6 C 79 20 136/77 11/22/21 07:21 70 11/22/21 03:30 36.8 C 70 18 157/91 H 11/21/21 23:08 63 11/21/21 22:29 36.8 C 67 18 142/79 H 11/21/21 22:37 Pulse Ox O2 Del Method 11/22/21 07:47 93 Room Air 11/22/21 07:21 11/22/21 03:30 92 Room Air 11/21/21 23:08 11/21/21 22:29 95 Room Air 11/21/21 22:37 Room Air Laboratory Results Laboratory Tests 11/21/21 11/21/21 11/22/21 09:25 09:25 06:35 WBC 6.66 Hgb 13.6 L Hct 39.4 L Plt Count 145 Sodium 133 L Potassium 5.6 H Chloride 105 Carbon Dioxide 19 L BUN 96 H Creatinine 5.11 H* D Glucose 161 H Calcium 7.8 L Phosphorus 6.5 H Albumin 2.4 L PEP Interpretation Lipase 165 H 11/22/21 06:35 WBC Hgb Hct Plt Count Sodium Potassium Chloride Carbon Dioxide BUN Creatinine Glucose Calcium Phosphorus Albumin PEP Interpretation Pending Lipase Laboratory Tests 11/21/21 11/21/21 10:22 10:22 Urine Appearance Clear Urine pH 6.0 Ur Specific [place] 1.010 Urine Protein 4+ H Urine Glucose (UA) Negative Urine Blood 1+ H Urine Nitrite Negative Ur Leukocyte Esterase Negative Urine RBC (Auto) 5-10 H Protein/Creatinin Ratio 10.9 H Laboratory Tests 11/21/21 11/21/21 11/22/21 12:31 18:13 06:35 Serum Immunofixation Pending Cryoglobulin Pending JUSTIN Screen Pending Anti-Proteinase 3 Pending ANCA Pending Complement C3 Complement C4 Tot Complement (CH50) Hepatitis B Ab, Qual Pending Hep B Core IgM Ab Pending Hepatitis C Ab (EIA) Pending Hep C Ab Signal/Cutoff Pending SARS-CoV-2, RNA, NAAT NEGATIVE Phospholip A2 Rec IFA Pending Phospholip A2 Rec PRAKASH Pending 11/22/21 11:17 Serum Immunofixation Cryoglobulin JUSTIN Screen Anti-Proteinase 3 ANCA Complement C3 Pending Complement C4 Pending Tot Complement (CH50) Pending Hepatitis B Ab, Qual Hep B Core IgM Ab Hepatitis C Ab (EIA) Hep C Ab Signal/Cutoff SARS-CoV-2, RNA, NAAT Phospholip A2 Rec IFA Phospholip A2 Rec PRAKASH Diagnostic Findings 11/21/[address]: Kidneys - the unenhanced kidneys are normal in size and without hydronephrosis. There are numerous punctate nonobstructing calculi seen bilaterally. No ureteral stone is seen. There is no evidence of contour deforming renal mass lesion. Nonspecific perinephric stranding is seen bilaterally 11/21/21 Renal artery duplex - negative for TIFF PG Care Time/CCT Total # of Minutes Spent Total Time Spent with Patient: Total time spent is greater than 50% in coordination of care (as documented) at patient's floor/unit and/or counseling patient: Coding Level of Care Code 90407 Subseq Hosp Care Lvl 3 Diagnoses Acute kidney injury N17.9 Hyperkalemia E87.5 Metabolic acidosis E87.2 Hypertension I10 Hypertension type: unspecified (1) Hypertension Hypertension type: unspecified Qualified Code(s): I10 - Essential (primary) hypertension
[2021-11-22] MEDS ORDERED: STAT IV STA (10:06)
[2021-11-22] MEDS ORDERED: SODIUM BICARBONATE IV SCH (10:30)
[2021-11-22] MEDS ORDERED: DEXTROSE 5% IV SCH (10:30)
[2021-11-22] MEDS ORDERED: SODIUM ZIRCONIUM CYCLOSILICATE 10 GM PACKET PO ONE ×2 (11:00→16:51)
[2021-11-22] MEDS: PANTOprazole 40 MG TAB PO SCH (13:08)
--- NOTE | 2021-11-22 13:13 | Hospitalist Progress Note ---
Date of Service November 22, 2021 Assessment & Plan (1) Acute kidney injury: Plan: Appreciate nephrology management of this complex patient No obstructive uropathy seen on CT A/P. no renal artery stenosis on renal artery duplex Rapidly progressive glomerulonephritis - nephrotic syndrome with spot protein/cr ratio 10.9. Dipstick showing proteinuria 30 mg/dl on October 06, 2021 but no prior urine analysis prior to COVID in [facility] or [facility]. Hold lisinopril, HCTZ and Celebrex No urgent need for dialysis Pending workup including JUSTIN reflex, ANCAs, C3/C4, Hep B surface Ab, core IgM, Hem C IgG, phospholipase A2 receptor Ab, 24 hour urine electrophoresis, serum cryoglobulin, immunofixation and protein electrophoresis Appreciate workup and management by nephrology - planning on renal biopsy as outpatient Prednisone 60mg PO given yesterday, Solu-Medrol 500mg IV started today, agree with GI prophylaxis with pantoprazole 40mg PO with this. (2) Proteinuria: Plan: As above (3) Hypertension: Plan: Continue amlodipine 5mg PO daily Holding ACEi and HCTZ (4) Bilateral edema of lower extremity: Plan: Suspected nephrotic syndrome +/- venous insufficiency Continue PABLO arceo (5) History of colon cancer: (6) Metabolic acidosis: Plan: Appreciate nephrology management of this with sodium bicarb (7) Hyperkalemia: Plan: K 5.6 this morning, repeat 5.2. Secondary to NICHOLAS. Lokelma 10g PO x2 given today. Appreciate ongoing management by nephrology. Plan VTE Prophylaxis - heparin 5000 units SQ q8h Diet - dialysis renal Disposition - continue admission to med/tele Admission and Anticipated Discharge Date Admission Date: November 21, 2021 Subjective No significant change in generalized swelling. No shortness of breath or chest pain. No confusion. No fever, chills or rash. Review of Systems Review of Systems: All systems reviewed & are unremarkable except as noted in Subjective Physical Exam Constitutional: WD/WN, vitals as above ENMT: Mouth: oral mucous membranes not dry Neck: trachea midline, no thyromegaly Respiratory: normal respiratory effort, lungs clear to auscultation Cardiovascular: Rate/Rhythm: regular rate and regular rhythm Heart Sounds: no murmur Extremities: normal capillary refill and + pedal edema (pitting 2+ bilateral equal to knees); no calf tenderness Gastrointestinal (Abdomen): normal bowel sounds, soft, nontender, no hepatosplenomegaly Musculoskeletal: no cyanosis or clubbing, extremities motor strength 5/5 Skin: no rashes, warm and dry Neurologic: moves all extremities and awake; no focal motor deficits and not confused Psychiatric: A+Ox3, euthymic affect Results & Data Results & Data ([facility]) Vital Signs (Past 12 Hours) Vital Signs Temp Pulse Pulse Pulse Resp BP Pulse Ox 11/22/21 11:05 36.5 C 66 20 119/71 95 11/22/21 09:52 11/22/21 07:47 36.6 C 79 20 136/77 93 11/22/21 07:21 70 11/22/21 03:30 36.8 C 70 18 157/91 H 92 O2 Del Method 11/22/21 11:05 Room Air 11/22/21 09:52 Room Air 11/22/21 07:47 Room Air 11/22/21 07:21 11/22/21 03:30 Room Air PG Care Time/CCT Total # of Minutes Spent Total Time Spent with Patient: Total time spent is greater than 50% in coordination of care (as documented) at patient's floor/unit and/or counseling patient: Coding Level of Care Code 04364 Subseq Hosp Care Lvl 2 Diagnoses Acute kidney injury N17.9 Proteinuria R80.9 Hypertension I10 Bilateral edema of lower extremity R60.0 History of colon cancer Z85.038 Metabolic acidosis E87.2 Hyperkalemia E87.5
[2021-11-22] MEDS: methylPREDNISolone 500 MG in DEXTROSE 5% 250 ML IV SCH (13:23)
[2021-11-22] MEDS: HEPARIN SOD 5,000 UNIT/0.5 ML VIAL SQ SCH ×2 (13:23→19:47)
[2021-11-22 16:32] LABS: BUN Creatinine Ratio 16.8 (10-20); Calcium 7.5 mg/dl (8.5-10.1); Creatinine Clr Calc Pharmacy 14.9 ml/min; Est GFR (African American) 11.3 ml/min; Est GFR (Non-African American) 9.7 ml/min; Potassium 5.2 mmol/L (3.5-5.1)
[2021-11-22 21:03] LABS: Total Volume Urine 1300 mL
[2021-11-22 21:50] LABS: Urine Total Protein > 1000.0 mg/dl
[2021-11-23] MEDS: HEPARIN SOD 5,000 UNIT/0.5 ML VIAL SQ SCH ×3 (05:55→21:26)
[2021-11-23] MEDS: ACETAMINOPHEN 325 MG TAB PO PRN (05:58)
[2021-11-23 06:32] LABS: BUN Creatinine Ratio 17.2 (10-20); Calcium 7.4 mg/dl (8.5-10.1); Creatinine Clr Calc Pharmacy 13.7 ml/min; Est GFR (Non-African American) 8.7 ml/min; Potassium 4.9 mmol/L (3.5-5.1)
[2021-11-23] MEDS: ATORVASTATIN 40 MG TAB PO SCH (07:49)
[2021-11-23] MEDS: amLODIPine BESYLATE 5 MG TAB PO SCH (07:49)
[2021-11-23] MEDS: PANTOprazole 40 MG TAB PO SCH (07:49)
[2021-11-23] MEDS: methylPREDNISolone 500 MG in DEXTROSE 5% 250 ML IV SCH (07:51)
--- NOTE | 2021-11-23 09:08 | Nephrology Progress Note ---
Date of Service November 23, 2021 Assessment & Plan (1) Acute kidney injury: Plan: * RPGN - nephrotic syndrome w/ abrupt decline in kidney function over last 2 weeks. Baseline Cr 1.38. No dyspnea or hemoptysis to suggest pulmonary renal syndrome. No systemic symptoms of vasculitis such as nasal congestion, oral ulceration, pleurisy, pericarditis, arthralgias or rash. Mild elevation of ESR * Urine sediment w/ only low grade hematuria, no cellular casts * UPCR 10.0 * Patient had been taking Celebrex 3x/week due to arthralgias associated w/ recent COVID infection (08/2021). Lisinopril and Celebrex have been stopped * Patient has a remote h/o colon CA * DDx is broad and includes minimal change disease, membranous nephropathy, ANCA vasculitis, plasma cell disorder. Patient has no other clinical signs of active vasculitis. 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 Will pursue biopsy by VIR as outpatient * Day #2 of 3 IV Solumedrol 500 mg daily, then transition to po Prednisone * Discussed probable need for [facility] on Wednesday. Patient remains agreeable to starting dialysis if needed * Vascular Surgery has been consulted for IJ THC placement on Wednesday if kidney function fails to improve/stabilize (2) Hyperkalemia: Plan: * Renal, low K diet * Will provide Lokelma 10 g po x 1 and recheck PRP at 1600 hrs (3) Metabolic acidosis: Plan: * Will provide NaHCO3 100 mEq IV x1 this am. Recheck PRP at 1600 hrs (4) Hypertension: Plan: * BP is acceptable. Continue to hold Lisinopril Admission and Anticipated Discharge Date Admission Date: November 21, 2021 Subjective Mr. Hopper was evaluated in his hospital room this morning. He currently denies fever, hemoptysis, angina, dyspnea or uremic symptoms. He has tolerated Lokelma without diarrhea or nausea. Review of Systems Constitutional: no fever Eyes: no problem reported Ear, Nose, Mouth, Throat: no problem reported Respiratory: no dyspnea Cardiovascular: no chest pain and no dyspnea at rest Gastrointestinal: no abdominal pain, no vomiting and no diarrhea/loose stools Musculoskeletal: no problem reported Physical Exam Constitutional: WD/WN, vitals as above Eyes: PERRL, conjunctivae normal, anicteric sclerae ENMT: external ear and nose normal, oropharynx normal Neck: trachea midline, no thyromegaly Respiratory: normal respiratory effort, lungs clear to auscultation Cardiovascular: Rate/Rhythm: regular rate and regular rhythm Gastrointestinal (Abdomen): normal bowel sounds, soft, nontender, no hepatosplenomegaly Neurologic: Speech / Cognition: normal cognition Results & Data ([facility]) Vital Signs (Past 12 Hours) Vital Signs Temp Pulse Pulse Pulse Resp BP BP 11/23/21 07:33 36.6 C 68 16 155/84 H 11/23/21 03:08 36.5 C 66 18 130/83 11/23/21 00:00 64 11/22/21 23:00 36.4 C L 61 18 144/82 H Pulse Ox O2 Del Method 11/23/21 07:33 96 Room Air 11/23/21 03:08 94 Room Air 11/23/21 00:00 11/22/21 23:00 94 Room Air Laboratory Results Laboratory Tests 11/21/21 11/21/21 11/22/21 12:31 18:13 06:35 Sodium Potassium Chloride Carbon Dioxide BUN Creatinine Glucose Calcium Albumin 2.4 L PEP Interpretation Serum Immunofixation Cryoglobulin Cryoglobulin Cryocrit JUSTIN Screen Pending Anti-Proteinase 3 Pending ANCA Pending Complement C3 Complement C4 Tot Complement (CH50) Hepatitis B Ab, Qual Pending Hep B Core IgM Ab Pending Hepatitis C Ab (EIA) Pending Hep C Ab Signal/Cutoff Pending SARS-CoV-2, RNA, NAAT NEGATIVE Phospholip A2 Rec IFA Pending Phospholip A2 Rec PRAKASH Pending 11/22/21 11/22/21 11/23/21 06:35 11:17 05:25 Sodium 130 L Potassium 4.9 Chloride 98 Carbon Dioxide 22 BUN 106 H Creatinine 6.16 H* D Glucose 165 H Calcium 7.4 L Albumin PEP Interpretation Pending Serum Immunofixation Pending Cryoglobulin Pending Cryoglobulin Cryocrit Pending JUSTIN Screen Anti-Proteinase 3 ANCA Complement C3 Pending Complement C4 Pending Tot Complement (CH50) Pending Hepatitis B Ab, Qual Hep B Core IgM Ab Hepatitis C Ab (EIA) Hep C Ab Signal/Cutoff SARS-CoV-2, RNA, NAAT Phospholip A2 Rec IFA Phospholip A2 Rec PRAKASH Laboratory Tests 11/21/21 18:13 ESR 61 H Laboratory Tests 11/21/21 18:13 INR 1.0 Diagnostic Findings 11/21/[address]: Kidneys - the unenhanced kidneys are normal in size and without hydronephrosis. There are numerous punctate nonobstructing calculi seen bilaterally. No ureteral stone is seen. There is no evidence of contour deforming renal mass lesion. Nonspecific perinephric stranding is seen bilaterally 11/21/21 Renal artery duplex - negative for TIFF PG Care Time/CCT Total # of Minutes Spent Total Time Spent with Patient: Total time spent is greater than 50% in coordination of care (as documented) at patient's floor/unit and/or counseling patient: Coding Level of Care Code 64376 Subseq Hosp Care Lvl 3 Diagnoses Acute kidney injury N17.9 Hyperkalemia E87.5 Metabolic acidosis E87.2 Hypertension I10 Hypertension type: unspecified (1) Hypertension Hypertension type: unspecified Qualified Code(s): I10 - Essential (primary) hypertension
--- NOTE | 2021-11-23 11:01 | Consultation ---
Date of Consultation November 23, 2021 Assessment & Plan (1) Acute kidney injury: Will plan on insertion of permcath tomorrow morning. I have discussed the risks options and benefits of the procedure with the patient. The patient understands the risks options and benefits and agrees to the procedure. Thank you very much for letting us participate in the care of this patient. History of Present Illness Reason for Consultation: acute kidney injury Attending Physician: Elías Dalton MD History of Present Illness This is a 66yo male with acute kidney injury needing dialysis. Consultation was obtained for an insertion of a permcath. He has increased edema of the lower extremities. He has had covid a few months ago. Denies any upper or lower extremity claudication. He does have a history of colon cancer. Allergies Allergy/AdvReac Type Severity Reaction Status Date / Time No Known Allergies Allergy Unverified 03/26/13 13:42 Home Medications Medication Instructions Recorded Confirmed Type hydrochlorothiazide 25 mg tablet 25 mg PO DAILY #14 tabs 11/07/21 11/21/21 Rx atorvastatin 40 mg tablet 40 mg PO DAILY 11/21/21 11/21/21 History lisinopril 10 mg tablet 10 mg PO DAILY 11/21/21 11/21/21 History Patient History Medical History History of colon cancer Hypertension Hypoalbuminemia Surgical History No pertinent past surgical history Social History Smoking Status: Never smoker Second Hand Exposure: No; Do You Dip or Chew Tobacco: No; Tobacco Cessation Education Requested by Patient: No Hx Alcohol Use: No Hx Substance Use: No Preferred Language: Lithuanian Communication Ability: Effective Superintendent Electric Power Required: No Beliefs That Will Affect Care: None Current Living Situation: Spouse Current Living Situation Comment: lives with Other Information That Helps Us Care for You: No Feels Safe at Home: Yes Safety Concerns: Feels Safe At This Time Assistive Devices: Glasses Review of Systems Review of Systems: All systems reviewed & are unremarkable except as noted in HPI & below Physical Exam Constitutional: WD/WN, vitals as above Respiratory: normal respiratory effort; no respiratory distress Cardiovascular: Rate/Rhythm: regular rate and regular rhythm Vessels: femoral pulses present and radial pulses present Extremities: + edema (bilateral lower extremities) Gastrointestinal (Abdomen): normal bowel sounds, soft, nontender, no hepatosplenomegaly Musculoskeletal: no cyanosis or clubbing, extremities motor strength 5/5 Neurologic: CN's II-XI intact bilaterally and moves all extremities Psychiatric: Orientation: alert and oriented x 3 Results & Data ([facility]) Vital Signs (Past 12 Hours) Vital Signs Temp Pulse Pulse Pulse Resp BP BP 11/23/21 07:33 36.6 C 68 16 155/84 H 11/23/21 03:08 36.5 C 66 18 130/83 11/23/21 00:00 64 Pulse Ox O2 Del Method 11/23/21 07:33 96 Room Air 11/23/21 03:08 94 Room Air 11/23/21 00:00
--- NOTE | 2021-11-23 11:36 | Hospitalist Progress Note ---
Date of Service November 23, 2021 Assessment & Plan (1) Acute kidney injury: Plan: Appreciate nephrology management of this complex patient No obstructive uropathy seen on CT A/P. no renal artery stenosis on renal artery duplex Rapidly progressive glomerulonephritis - nephrotic syndrome with spot protein/cr ratio 10.9. Dipstick showing proteinuria 30 mg/dl on October 06, 2021 but no prior urine analysis prior to COVID in [facility] or [facility]. Hold lisinopril, HCTZ and Celebrex No urgent need for dialysis - planning on permcath tomorrow Pending workup including JUSTIN reflex, ANCAs, C3/C4, Hep B surface Ab, core IgM, Hem C IgG, phospholipase A2 receptor Ab, 24 hour urine electrophoresis, serum cryoglobulin, immunofixation and protein electrophoresis Appreciate workup and management by nephrology - planning on renal biopsy as outpatient Prednisone 60mg PO given [11/21], Solu-Medrol 500mg IV [11/22], agree with GI prophylaxis with pantoprazole 40mg PO with this. (2) Proteinuria: Plan: As above (3) Hypertension: Plan: Continue amlodipine 5mg PO daily Holding ACEi and HCTZ (4) Bilateral edema of lower extremity: Plan: Suspected nephrotic syndrome +/- venous insufficiency Continue PABLO hose (5) History of colon cancer: (6) Metabolic acidosis: Plan: Appreciate nephrology management of this with sodium bicarb (7) Hyperkalemia: Plan: K 4.9 after Lokelma 10g PO x2 given yesterday. Appreciate ongoing management by nephrology. Plan VTE Prophylaxis - heparin 5000 units SQ q8h Diet - dialysis renal Disposition - continue admission to med/tele Admission and Anticipated Discharge Date Admission Date: November 21, 2021 Subjective Mildly more short of breath than yesterday. No leg cramps, nausea, vomiting, fever or chills. Continue to produce urine. No significant change in lower extremity swelling. Review of Systems Review of Systems: All systems reviewed & are unremarkable except as noted in Subjective Physical Exam Constitutional: WD/WN, vitals as above ENMT: Mouth: oral mucous membranes not dry Respiratory: normal respiratory effort, lungs clear to auscultation Cardiovascular: Rate/Rhythm: regular rate and regular rhythm Heart Sounds: no murmur Extremities: normal capillary refill and + pedal edema (pitting 2+ bilateral equal to knees); no calf tenderness Gastrointestinal (Abdomen): normal bowel sounds, soft, nontender, no hepatosplenomegaly Musculoskeletal: no cyanosis or clubbing, extremities motor strength 5/5 Skin: no rashes, warm and dry Neurologic: moves all extremities and awake; no focal motor deficits and not confused Psychiatric: A+Ox3, euthymic affect Genitourinary: no CVA tenderness Results & Data Results & Data ([facility]) Vital Signs (Past 12 Hours) Vital Signs Temp Pulse Pulse Pulse Resp BP BP 11/23/21 11:31 36.5 C 62 16 152/87 H 11/23/21 07:33 36.6 C 68 16 155/84 H 11/23/21 03:08 36.5 C 66 18 130/83 11/23/21 00:00 64 Pulse Ox O2 Del Method 11/23/21 11:31 96 Room Air 11/23/21 07:33 96 Room Air 11/23/21 03:08 94 Room Air 11/23/21 00:00 PG Care Time/CCT Total # of Minutes Spent Total Time Spent with Patient: Total time spent is greater than 50% in coordination of care (as documented) at patient's floor/unit and/or counseling patient: Coding Level of Care Code 98360 Subseq Hosp Care Lvl 2 Diagnoses Acute kidney injury N17.9 Proteinuria R80.9 Hypertension I10 Bilateral edema of lower extremity R60.0 History of colon cancer Z85.038 Metabolic acidosis E87.2 Hyperkalemia E87.5
[2021-11-24] MEDS ORDERED: ceFAZolin 2000MG 2,000 MG/15 ML SYR IV SCH (06:00)
[2021-11-24] MEDS ORDERED: SODIUM CHLORIDE 0.9% 1000ML 1,000 ML IV PRN (07:00)
[2021-11-24 08:24] LABS: Hematocrit (blood only) 36.7 % (40.1-51.0); Hemoglobin 13.4 g/dl (14.0-18.0); Mean Corpuscular Hgb Conc 36.5 g/dL (32.0-36.0); Mean Corpuscular Volume 82.3 fL (80.0-100.0); Platelet Count 196 K/uL (130-400); RDW Coefficient of Variation 12.5 % (11.5-14.5); RDW Standard Deviation 37.8 fL (36.4-46.3); Red Blood Count 4.46 M/uL (4.63-6.08); White Blood Count 13.98 K/ul (4.8-10.8)
--- NOTE | 2021-11-24 08:32 | Nephrology Progress Note ---
Date of Service November 24, 2021 Assessment & Plan (1) Acute kidney injury: Plan: * RPGN - nephrotic syndrome w/ abrupt decline in kidney function over 2 weeks. Baseline Cr 1.38. No dyspnea or hemoptysis to suggest pulmonary renal syndrome. No systemic symptoms of vasculitis such as nasal congestion, oral ulceration, pleurisy, pericarditis, arthralgias or rash. Mild elevation of ESR * Urine sediment w/ only low grade hematuria, no cellular casts * UPCR 10.0 * Patient had been taking Celebrex 3x/week due to arthralgias associated w/ recent COVID infection (08/2021). Lisinopril and Celebrex have been stopped * Patient has a remote h/o colon CA * DDx is broad and includes minimal change disease, membranous nephropathy, ANCA vasculitis, plasma cell disorder. Patient has no other clinical signs of active vasculitis. 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 Will pursue biopsy by VIR as outpatient (they have family near [facility]) * Day #3 of 3 IV Solumedrol 500 mg daily * Will transition to Prednisone 60 mg daily in am * 1st run HD today following IJ THC insertion - attempt 2 L UF to improve BP and peripheral edema (2) Hyperkalemia: Plan: * Resolved following Lokelma therapy (3) Hypertension: Plan: * Mildly hypertensive. Expect this to improve w/ UF Admission and Anticipated Discharge Date Admission Date: November 21, 2021 Subjective Mr. Hopper was evaluated in his hospital room this morning. He denies fever, angina, pleurisy or uremic symptoms. He is tolerating IV Solumedrol without side effect. He remains agreeable to IJ THC insertion and initiation of HD Review of Systems Constitutional: no fever Eyes: no problem reported Ear, Nose, Mouth, Throat: no problem reported Respiratory: no dyspnea Cardiovascular: no chest pain and no dyspnea at rest Gastrointestinal: no abdominal pain, no vomiting and no diarrhea/loose stools Musculoskeletal: no problem reported Physical Exam Constitutional: WD/WN, vitals as above Eyes: PERRL, conjunctivae normal, anicteric sclerae ENMT: external ear and nose normal, oropharynx normal Neck: trachea midline, no thyromegaly Respiratory: normal respiratory effort, lungs clear to auscultation Cardiovascular: Rate/Rhythm: regular rate and regular rhythm Gastrointestinal (Abdomen): normal bowel sounds, soft, nontender, no hepatosplenomegaly Neurologic: Speech / Cognition: normal cognition Results & Data ([facility]) Vital Signs (Past 12 Hours) Vital Signs Temp Pulse Pulse Pulse Resp BP BP 11/24/21 07:59 36.5 C 63 16 144/76 H 11/24/21 03:11 36.5 C 64 16 146/89 H 11/23/21 22:09 64 11/23/21 23:16 60 18 150/81 H Pulse Ox O2 Del Method 11/24/21 07:59 95 Room Air 11/24/21 03:11 95 Room Air 11/23/21 22:09 11/23/21 23:16 95 Room Air Laboratory Results Laboratory Tests 11/21/21 11/21/21 11/22/21 12:31 18:13 06:35 WBC Hgb Hct Plt Count Urine PEP Interpret Serum Immunofixation Pending Cryoglobulin Pending Cryoglobulin Cryocrit Pending JUSTIN Screen Pending Anti-Proteinase 3 Pending Anti-Myeloperoxidase Pending ANCA Pending Complement C3 Complement C4 Tot Complement (CH50) Hepatitis B Ab, Qual Pending Hep B Core IgM Ab Pending Hepatitis C Ab (EIA) Pending Hep C Ab Signal/Cutoff Pending SARS-CoV-2, RNA, NAAT NEGATIVE Phospholip A2 Rec IFA Pending Phospholip A2 Rec PRAKASH Pending 11/22/21 11/22/21 11/24/21 11:17 20:30 08:01 WBC 13.98 H Hgb 13.4 L Hct 36.7 L Plt Count 196 Urine PEP Interpret Pending Serum Immunofixation Cryoglobulin Cryoglobulin Cryocrit JUSTIN Screen Anti-Proteinase 3 Anti-Myeloperoxidase ANCA Complement C3 Pending Complement C4 Pending Tot Complement (CH50) Pending Hepatitis B Ab, Qual Hep B Core IgM Ab Hepatitis C Ab (EIA) Hep C Ab Signal/Cutoff SARS-CoV-2, RNA, NAAT Phospholip A2 Rec IFA Phospholip A2 Rec PRAKASH Laboratory Tests 11/24/21 08:01 Sodium 129 L Potassium 4.8 Chloride 97 L Carbon Dioxide 21 BUN 133 H D Creatinine 7.80 H* D Glucose 146 H Calcium 7.1 L PG Care Time/CCT Total # of Minutes Spent Total Time Spent with Patient: Total time spent is greater than 50% in coordination of care (as documented) at patient's floor/unit and/or counseling patient: Coding Level of Care Code 79535 Subseq Hosp Care Lvl 3 Diagnoses Acute kidney injury N17.9 Hyperkalemia E87.5 Hypertension I10 Hypertension type: unspecified (1) Hypertension Hypertension type: unspecified Qualified Code(s): I10 - Essential (primary) hypertension
[2021-11-24] MEDS: methylPREDNISolone 500 MG in DEXTROSE 5% 250 ML IV SCH (08:37)
[2021-11-24 08:39] LABS: Calcium 7.1 mg/dl (8.5-10.1); Creatinine Clr Calc Pharmacy 10.8 ml/min; Est GFR (African American) 7.6 ml/min; Est GFR (Non-African American) 6.5 ml/min; Potassium 4.8 mmol/L (3.5-5.1)
[2021-11-24 08:45] LABS: Acanthocytes 2+; Basophils # (auto) 0.02 K/uL (0-0.2); Basophils % (auto) 0.1 %; Echinocytes 2+; Immature Granulocytes # (auto) 0.06 K/uL (0.00-0.02); Immature Granulocytes % (auto) 0.4 %; Lymphocytes # (auto) 0.63 K/uL (1.2-3.4); Lymphocytes % (auto) 4.5 %; Monocytes % (auto) 4.3 %; Neutrophils # (auto) 12.67 K/uL (1.4-6.5); Neutrophils % (auto) 90.7 %
[2021-11-24 08:51] LABS: BUN Creatinine Ratio 17.3 (10-20)
[2021-11-24] MEDS: ATORVASTATIN 40 MG TAB PO SCH ×2 (09:46→13:21)
[2021-11-24] MEDS: PANTOprazole 40 MG TAB PO SCH (09:46)
[2021-11-24] MEDS: amLODIPine BESYLATE 5 MG TAB PO SCH (09:46)
--- NOTE | 2021-11-24 10:00 | History & Physical Bridge Note ---
Date of Service November 24, 2021 History & Physical Bridge Note Patient for insertion of permcath today. I have discussed the risks options and benefits of the procedure with the patient. The patient understands the risks options and benefits and agrees to the procedure. I have examined the patient, reviewed the History & Physical and in the interval since the performance of the History & Physical I have noted the following changes of clinical significance: no changes noted
[2021-11-24] MEDS ORDERED: MIDAZOLAM HCL 1 MG/ML 2ML VIAL ONE (10:22)
[2021-11-24] MEDS ORDERED: fentaNYL citrate 100 MCG/2 ML VIAL ONE (10:22)
[2021-11-24] MEDS ORDERED: HEPARIN SOD (PORCINE) 5,000 UNITS/ML VIAL ONE ×2 (10:23→10:55)
[2021-11-24] MEDS ORDERED: LIDOCAINE 1% LOCAL 20 ML VIAL ONE ×2 (10:24→10:53)
--- NOTE | 2021-11-24 11:08 | Pre Anesthesia Assessment ---
Date of Service November 24, 2021 Pre Sedation Assessment Vital Signs Temp Pulse Pulse Pulse Resp BP BP 11/24/21 06:07 91 H 11/24/21 10:47 36.5 C 64 20 122/99 11/24/21 07:59 36.5 C 63 16 144/76 H 11/24/21 03:11 36.5 C 64 16 146/89 H 11/23/21 22:09 64 11/23/21 23:16 60 18 150/81 H 11/23/21 19:38 11/23/21 19:40 36.5 C 62 18 156/96 H 11/23/21 11:31 36.5 C 62 16 152/87 H Pulse Ox O2 Del Method 11/24/21 06:07 11/24/21 10:47 96 Room Air 11/24/21 07:59 95 Room Air 11/24/21 03:11 95 Room Air 11/23/21 22:09 11/23/21 23:16 95 Room Air 11/23/21 19:38 Room Air 11/23/21 19:40 95 Room Air 11/23/21 11:31 96 Room Air Cardiovascular RRR, no murmur, no edema Respiratory normal respiratory effort, lungs clear to auscultation Pre-Sedation Airway Assessment Smoking Status: Never smoker Hx Sleep Apnea: No Short, Thick Neck: No Thyromental Distance: > or= 3.5 Finger Breadths Oral Cavity: + Capped Teeth Mallampati Class: IV ASA: ASA4 NPO Status Date of Last Intake of Fluids: 11/23/21 Time of Last Intake of Fluids: 22:00 Date of Last Intake of Solid Food: 11/23/21 Time of Last Intake of Solid Foods: 18:00 Procedure Planning Contraindications for Sedation: none Current Medications Reviewed: Yes Notes The planned sedation has been discussed with the patient. Informed Consent was obtained. I have identified the patient, determined the appropriateness of sedation and have assessed the patient immediately prior to the procedure. All medicine(s) and interventions are by my order.
--- NOTE | 2021-11-24 11:33 | Operative Report ---
Post Operative Report Pre & Post Diagnosis Operation Date: 11/24/21 10:55 Pre-Op Diagnosis: Acute Kidney Injury Post-Op Diagnosis: Acute Kidney Injury I identified the patient and participated in the time-out.: Yes Procedure Operation Date: 11/24/21 10:55 Actual Procedures p Perm Catheter Placement Right Jugular Approach, Ultrasound Localization of Right Jugular Vein, Fluoroscopy for Positioning, Moderate Sedation [id number](Right) - Patricio Ellington MD Surgeon Patricio Ellington MD Yield Improvement Engineer none Estimated Blood Loss 3 Findings Consistent with Post-Op Diagnosis Specimens none Anesthesia Type RN Sedation Complications none Disposition Accompanied Patient To Recovery: No Disposition: Recovery Room Indications This is a 66-year-old male who has acute kidney injury and is in need of dialysis. PermCath was recommended. I have discussed the risks options and benefits of the procedure with the patient. The patient understands the risks options and benefits and agrees to the procedure. Description of Procedure Patient was taken to the angio suite and placed in the supine position. The right side of the neck and chest wall were prepped and draped in a sterile manner. The patient was identified and a timeout performed. Local anesthesia was then administered to the appropriate areas of the neck and chest wall. Ultrasound was then used to locate the right internal jugular vein. The vein compressed easily, had no filing defects, and was patent. The vein was then punctured under direct ultrasound imaging. A guidewire was then passed centra lly under fluoroscopic imaging. A stab wound was then made in the anterior chest wall and a 19 cm permcath was passed from the stab wound on the chest wall to the puncture site on the neck. The puncture site was then dilated till the 14Fr peel away sheath was inserted. The permcath was then inserted through the sheath to a central position in the distal superior vena cava. The peel away sheath was then removed. The catheter was then sutured in place using nylon sutures. The puncture was then closed using a 4-0 Vicryl subcuticular suture. Dermabond was used for a dressing on the puncture site. Both ports aspirated and flushed easily and were then packed with heparin. A sterile dressing was applied to the catheter. The patient left the operation room in satisfactory condition and tolerated the procedure well. All needle and sponge counts were correct at the end of the procedure. I attest to the content of the Intraoperative Record and any orders documented therein. Any exceptions are noted below.
--- NOTE | 2021-11-24 11:37 | Post Anesthesia Assessment ---
Date of Service November 24, 2021 Post Sedation Assessment Vital Signs Temp Pulse Pulse Pulse Resp BP BP 11/24/21 11:33 63 16 127/101 H 11/24/21 11:29 63 16 148/91 H 11/24/21 11:24 65 16 150/88 H 11/24/21 11:19 63 16 176/104 H 11/24/21 11:11 62 16 168/100 H 11/24/21 06:07 91 H 11/24/21 10:47 36.5 C 64 20 122/99 11/24/21 07:59 36.5 C 63 16 144/76 H 11/24/21 03:11 36.5 C 64 16 146/89 H 11/23/21 22:09 64 11/23/21 23:16 60 18 150/81 H 11/23/21 19:38 11/23/21 19:40 36.5 C 62 18 156/96 H Pulse Ox O2 Del Method O2 Flow Rate 11/24/21 11:33 98 Nasal Cannula 4 11/24/21 11:29 100 Nasal Cannula 4 11/24/21 11:24 100 Nasal Cannula 4 11/24/21 11:19 100 Nasal Cannula 4 11/24/21 11:11 100 Nasal Cannula 4 11/24/21 06:07 11/24/21 10:47 96 Room Air 11/24/21 07:59 95 Room Air 11/24/21 03:11 95 Room Air 11/23/21 22:09 11/23/21 23:16 95 Room Air 11/23/21 19:38 Room Air 11/23/21 19:40 95 Room Air Recovery Score Activity: Moves 4 extremities Respiration: Deep Breath/Cough Circulation: +/-20% PreAnes Value Consciousness: Fully Awake Oxygen Saturation: O2 needed for >90% Post Anesthesia Score: 9 Discharge Sedation Level of Care: Fast Track Phase II Post Sedation Plan On clinical assessment, the patient appears to have tolerated the sedation without complications. Patient is recovering as anticipated. Patient will continue to be monitored by nursing and may be discharged when sedation discharge criteria are met per below protocol. Upon Completions of procedure up to 15 minutes continue every 5 minute vital signs and the P.A.R. score; then discharge to a Phase I or Fast Track to Phase II per the following guidelines: * Discharge Patient to appropriate Phase II area if PAR is 8 or greater or return to pre- procedure baseline. The post - procedure orders will be as directed. * If PAR score is less than 8 or not return to pre-procedure baseline then patient will follow Phase I monitoring till PAR is reached for Phase II. The Phase I may be done in procedure room or may call to secure a Phase I area. * If naloxone or flumazenil are used for reversal, hold in Phase I for continued monitoring from when last reversal dose was given for a minimum of 60 minutes or longer pending the nurse and/or physician discretion of patient condition before discharge to Phase II. Please call the Sedation Physician to re-evaluate and complete post-note for discharge to Phase II area. Do NOT discharge from procedure sedation or Phase 1 until post- sedation evaluation note is complete by procedure /sedation MD Sedation Discharge Instructions to be given to the patient at discharge to home.
[2021-11-24] MEDS: HEPARIN SOD 5,000 UNIT/0.5 ML VIAL SQ SCH ×2 (13:22→23:09)
[2021-11-24] MEDS: ACETAMINOPHEN 325 MG TAB PO PRN (20:04)
--- NOTE | 2021-11-24 20:22 | Hospitalist Progress Note ---
Date of Service November 24, 2021 Assessment & Plan (1) Acute kidney injury: Plan: Appreciate nephrology management of this complex patient No obstructive uropathy seen on CT A/P. no renal artery stenosis on renal artery duplex Rapidly progressive glomerulonephritis - nephrotic syndrome with spot protein/cr ratio 10.9. Dipstick showing proteinuria 30 mg/dl on October 06, 2021 but no prior urine analysis prior to COVID in [facility] or [facility]. Hold lisinopril, HCTZ and Celebrex Pending workup including JUSTIN reflex, ANCAs, C3/C4, Hep B surface Ab, core IgM, Hem C IgG, phospholipase A2 receptor Ab, 24 hour urine electrophoresis, serum cryoglobulin, immunofixation and protein electrophoresis Prednisone 60mg PO given [11/21], Solu-Medrol 500mg IV [11/22] - last dose today then will go back on prednisone, agree with GI prophylaxis with pantoprazole 40mg PO with this. Appreciate workup and management by nephrology - planning on renal biopsy as outpatient, dialysis started [11/24] (2) Proteinuria: Plan: As above (3) Hypertension: Plan: Continue amlodipine 5mg PO daily - will hold for dialysis days, possible will no t need this on discharge if dialysis fluid management can sort out his Holding ACEi and HCTZ (4) Bilateral edema of lower extremity: Plan: Suspected nephrotic syndrome +/- venous insufficiency Continue PABLO arceo (5) History of colon cancer: (6) Metabolic acidosis: Plan: Appreciate nephrology management of this with sodium bicarb (7) Hyperkalemia: Plan: Now resolved and management by dialysis Plan VTE Prophylaxis - heparin 5000 units SQ q8h - can restart after permcath Diet - dialysis renal Disposition - continue admission to med/tele Admission and Anticipated Discharge Date Admission Date: November 21, 2021 Subjective Patient seen after permcath and dialysis today. Seen walking around the halls without a problem. No hearburn. Mild pain over percath site. Tolerated dialysis well without cramping. Review of Systems Review of Systems: All systems reviewed & are unremarkable except as noted in Subjective Physical Exam Constitutional: WD/WN, vitals as above ENMT: Mouth: oral mucous membranes not dry Respiratory: normal respiratory effort, lungs clear to auscultation Cardiovascular: Rate/Rhythm: regular rate and regular rhythm Heart Sounds: no murmur Extremities: normal capillary refill and + pedal edema (pitting 2+ bilateral equal to knees); no calf tenderness Gastrointestinal (Abdomen): normal bowel sounds, soft, nontender, no hepatosplenomegaly Skin: no rashes, warm and dry Neurologic: moves all extremities and awake; no focal motor deficits and not confused Psychiatric: A+Ox3, euthymic affect Results & Data Results & Data ([facility]) Vital Signs (Past 12 Hours) Vital Signs Temp Pulse Pulse Pulse Pulse Resp BP 11/24/21 19:37 36.4 C L 57 L 20 11/24/21 16:43 36.4 C L 63 14 11/24/21 16:00 36.6 C 60 11/24/21 15:30 58 L 156/94 H 11/24/21 15:00 65 108/89 11/24/21 14:30 61 155/94 H 11/24/21 14:00 61 156/93 H 11/24/21 13:40 36.6 C 66 11/24/21 11:58 63 11/24/21 11:56 36.4 C L 61 16 11/24/21 11:38 65 16 11/24/21 11:33 63 16 11/24/21 11:29 63 16 11/24/21 11:24 65 16 11/24/21 11:19 63 16 11/24/21 11:11 62 16 11/24/21 10:47 36.5 C 64 20 BP BP Pulse Ox O2 Del Method O2 Flow Rate 11/24/21 19:37 158/97 H 95 Room Air 11/24/21 16:43 148/83 H 94 11/24/21 16:00 163/93 H 11/24/21 15:30 11/24/21 15:00 11/24/21 14:30 11/24/21 14:00 11/24/21 13:40 11/24/21 11:58 11/24/21 11:56 149/86 H 95 Room Air 11/24/21 11:38 151/85 H 95 Room Air 0 11/24/21 11:33 127/101 H 98 Oxymask 4 11/24/21 11:29 148/91 H 100 Oxymask 4 11/24/21 11:24 150/88 H 100 Oxymask 4 11/24/21 11:19 176/104 H 100 Oxymask 4 11/24/21 11:11 168/100 H 100 Oxymask 4 11/24/21 10:47 122/99 96 Room Air PG Care Time/CCT Total # of Minutes Spent Total Time Spent with Patient: Total time spent is greater than 50% in coordination of care (as documented) at patient's floor/unit and/or counseling patient: Coding Level of Care Code 45033 Subseq Hosp Care Lvl 2 Diagnoses Acute kidney injury N17.9 Proteinuria R80.9 Hypertension I10 Bilateral edema of lower extremity R60.0 History of colon cancer Z85.038 Metabolic acidosis E87.2 Hyperkalemia E87.5
[2021-11-24] MEDS ORDERED: oxyCODONE/ACETAMINOPHEN 5mg/325mg TAB PO STA (22:20)
[2021-11-25] MEDS: HEPARIN SOD 5,000 UNIT/0.5 ML VIAL SQ SCH ×3 (05:43→22:12)
[2021-11-25] MEDS ORDERED: SODIUM CHLORIDE 0.9% 1000ML 1,000 ML IV PRN (07:00)
[2021-11-25 07:06] LABS: Hemoglobin 13.5 g/dl (14.0-18.0); Mean Corpuscular Hemoglobin 29.3 pg (25.0-34.0); Mean Corpuscular Hgb Conc 35.5 g/dL (32.0-36.0); Mean Corpuscular Volume 82.6 fL (80.0-100.0); Platelet Count 184 K/uL (130-400); RDW Coefficient of Variation 12.5 % (11.5-14.5); RDW Standard Deviation 37.9 fL (36.4-46.3); White Blood Count 12.33 K/ul (4.8-10.8)
[2021-11-25 07:59] LABS: BUN Creatinine Ratio 16.2 (10-20); Calcium 6.9 mg/dl (8.5-10.1); Creatinine Clr Calc Pharmacy 10.9 ml/min; Est GFR (African American) 7.6 ml/min; Est GFR (Non-African American) 6.6 ml/min; Potassium 4.5 mmol/L (3.5-5.1)
[2021-11-25] MEDS: PANTOprazole 40 MG TAB PO SCH (08:00)
[2021-11-25] MEDS: ATORVASTATIN 40 MG TAB PO SCH (08:00)
--- NOTE | 2021-11-25 08:32 | Nephrology Progress Note ---
Date of Service November 25, 2021 Assessment & Plan (1) Acute kidney injury: Plan: * RPGN - nephrotic syndrome w/ abrupt decline in kidney function over 2 weeks. Baseline Cr 1.38. No dyspnea or hemoptysis to suggest pulmonary renal syndrome. No systemic symptoms of vasculitis such as nasal congestion, oral ulceration, pleurisy, pericarditis, arthralgias or rash. Mild elevation of ESR * Urine sediment w/ only low grade hematuria, no cellular casts * UPCR 10.0 * Patient had been taking Celebrex 3x/week due to arthralgias associated w/ recent COVID infection (08/2021). Lisinopril and Celebrex have been stopped * Patient has a remote h/o colon CA * DDx is broad and includes minimal change disease, membranous nephropathy, ANCA vasculitis, plasma cell disorder. Patient has no other clinical signs of active vasculitis. 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 Will pursue biopsy by [facility] as outpatient (they have family near [facility]) * Completed Solumedrol 500 mg IV daily x3 days * Start Prednisone 60 mg daily today * Continue Protonix 40 mg po daily * Start Bactrim SS one po 3x/week (MWF) tomorrow * 2nd HD treatment today. Will plan third treatment tomorrow and try to maintain a MWF schedule * Await case management assistance to set up outpatient HD in [place] (2) Hypertension: Plan: * Improved following UF w/ HD Admission and Anticipated Discharge Date Admission Date: November 21, 2021 Subjective Mr. Hopper was evaluated in his hospital room this morning. He underwent R IJ THC insertion and tolerated his 1st dialysis treatment without complication yesterday. He currently denies fever, angina, dyspnea, pleurisy or uremic symptoms. Review of Systems Constitutional: no fever Eyes: no problem reported Ear, Nose, Mouth, Throat: no problem reported Respiratory: no dyspnea Cardiovascular: no chest pain and no dyspnea at rest Gastrointestinal: no abdominal pain, no vomiting and no diarrhea/loose stools Musculoskeletal: no problem reported Physical Exam Constitutional: WD/WN, vitals as above Eyes: PERRL, conjunctivae normal, anicteric sclerae ENMT: external ear and nose normal, oropharynx normal Neck: trachea midline, no thyromegaly R IJ THC w/ clean, dry dressing in place Respiratory: normal respiratory effort, lungs clear to auscultation Cardiovascular: Rate/Rhythm: regular rate and regular rhythm Gastrointestinal (Abdomen): normal bowel sounds, soft, nontender, no hepatosplenomegaly Neurologic: Speech / Cognition: normal cognition Results & Data ([facility]) Vital Signs (Past 12 Hours) Vital Signs Temp Pulse Pulse Resp BP Pulse Ox O2 Del Method 11/25/21 07:54 36.4 C L 63 18 151/83 H 94 11/25/21 06:18 58 L 11/25/21 03:34 36.5 C 62 18 162/96 H 97 Room Air 11/24/21 22:58 36.5 C 61 20 162/99 H 96 Room Air 11/24/21 22:18 54 L Laboratory Results Laboratory Tests 11/21/21 11/21/21 11/22/21 12:31 18:13 06:35 WBC Hgb Hct Plt Count Sodium Potassium Chloride Carbon Dioxide BUN Creatinine Glucose Calcium PEP Interpretation Pending Serum Immunofixation Pending Cryoglobulin Pending Cryoglobulin Cryocrit Pending JUSTIN Screen Pending Anti-Proteinase 3 Pending ANCA Pending Complement C3 Complement C4 Tot Complement (CH50) Hepatitis B Ab, Qual Pending Hep B Core IgM Ab Pending Hepatitis C Ab (EIA) Pending Hep C Ab Signal/Cutoff Pending SARS-CoV-2, RNA, NAAT NEGATIVE Phospholip A2 Rec IFA Pending Phospholip A2 Rec PRAKASH Pending 11/22/21 11/25/21 11/25/21 11:17 06:44 06:44 WBC 12.33 H Hgb 13.5 L Hct 38.0 L Plt Count 184 Sodium 131 L Potassium 4.5 Chloride 98 Carbon Dioxide 22 BUN 125 H Creatinine 7.72 H* Glucose 144 H Calcium 6.9 L PEP Interpretation Serum Immunofixation Cryoglobulin Cryoglobulin Cryocrit JUSTIN Screen Anti-Proteinase 3 ANCA Complement C3 Pending Complement C4 Pending Tot Complement (CH50) Pending Hepatitis B Ab, Qual Hep B Core IgM Ab Hepatitis C Ab (EIA) Hep C Ab Signal/Cutoff SARS-CoV-2, RNA, NAAT Phospholip A2 Rec IFA Phospholip A2 Rec PRAKASH PG Care Time/CCT Total # of Minutes Spent Total Time Spent with Patient: Total time spent is greater than 50% in coordination of care (as documented) at patient's floor/unit and/or counseling patient: Coding Level of Care Code 80623 Subseq Hosp Care Lvl 3 Diagnoses Acute kidney injury N17.9 Hypertension I10 Hypertension type: unspecified (1) Hypertension Hypertension type: unspecified Qualified Code(s): I10 - Essential (primary) hypertension
[2021-11-25] MEDS: predniSONE 20 MG TAB PO SCH (08:38)
--- NOTE | 2021-11-25 16:38 | Hospitalist Progress Note ---
Date of Service November 25, 2021 Assessment & Plan (1) Acute kidney injury: Plan: RPGN/nephrotic syndrome Appreciate nephrology management of this complex patient No obstructive uropathy seen on CT A/P. no renal artery stenosis on renal artery duplex Rapidly progressive glomerulonephritis - nephrotic syndrome with spot protein/cr ratio 10.9. Dipstick showing proteinuria 30 mg/dl on October 06, 2021 but no prior urine analysis prior to COVID in [facility] or [facility]. Hold lisinopril, HCTZ and Celebrex Pending workup including JUSTIN reflex, ANCAs, C3/C4, Hep B surface Ab, core IgM, Hem C IgG, phospholipase A2 receptor Ab, 24 hour urine electrophoresis, serum cryoglobulin, immunofixation and protein electrophoresis Prednisone 60mg PO given [11/21], Solu-Medrol 500mg IV [11/22] - [11/24] Prednisone 60 mg started 11/25, GI PPx with Protonix continued Appreciate workup and management by nephrology - planning on renal biopsy as outpatient, dialysis started [11/24] Anticipate third dialysis session 11/25, then progression to outpatient with Wednesday dialysis at [facility] (2) Proteinuria: Plan: As above (3) Hypertension: Plan: Continue amlodipine 5mg PO daily - will hold for dialysis days, possible will not need this on discharge if dialysis fluid management can sort out his Holding ACEi and HCTZ (4) Bilateral edema of lower extremity: Plan: Suspected nephrotic syndrome +/- venous insufficiency Continue PABLO arceo (5) History of colon cancer: (6) Metabolic acidosis: Plan: Appreciate nephrology management of this with sodium bicarb (7) Hyperkalemia: Plan: Now resolved and management by dialysis Plan VTE Prophylaxis - heparin 5000 units SQ q8h Diet - dialysis renal Disposition - continue admission to med/tele Admission and Anticipated Discharge Date Admission Date: November 21, 2021 Subjective Seen at bedside during dialysis. Tolerating well. No fever, chills, sweats, lightheadedness, dizziness, pain. He is non an uric, making a small amount about 1-200 cc 3 times over the course of the morning. No shakes/tremors. Is working on having dialysis set up and bowls per, and is anticipating a third tr eatment tomorrow and Wednesday thereafter Review of Systems Review of Systems: All systems reviewed & are unremarkable except as noted in Subjective Physical Exam Physical Exam: General: A&Ox3. NAD. Cooperative. HEENT: Atraumatic, normocephalic. Right IJ dialysis catheter in place. C/C/I Pulm: CTAB A&P. -wheezes, -rales, -rhonchi. Symmetrical chest rise. No increase in work of breathing. No respiratory distress. Cardiac: RRR, -mrg. Radial pulses intact and symmetrical. Abdominal: Nontender, nondistended, soft. BS present. Extremities: Warm, dry. Results & Data Results & Data ([facility]) Vital Signs (Past 12 Hours) Vital Signs Temp Pulse Pulse Pulse Resp BP BP 11/25/21 15:19 36.5 C 59 L 159/89 H 11/25/21 14:17 66 11/25/21 12:04 52 L 101/68 11/25/21 12:18 36.4 C L 54 L 11/25/21 11:30 65 154/100 H 11/25/21 11:00 59 L 137/91 11/25/21 10:30 55 L 140/93 11/25/21 10:00 58 L 138/86 11/25/21 09:30 59 L 136/85 11/25/21 09:00 62 138/83 11/25/21 08:49 36.4 C L 60 11/25/21 07:54 36.4 C L 63 18 151/83 H 11/25/21 06:18 58 L BP Pulse Ox O2 Del Method 11/25/21 15:19 94 Room Air 11/25/21 14:17 11/25/21 12:04 11/25/21 12:18 134/83 11/25/21 11:30 11/25/21 11:00 11/25/21 10:30 11/25/21 10:00 11/25/21 09:30 11/25/21 09:00 11/25/21 08:49 11/25/21 07:54 94 11/25/21 06:18 PG Care Time/CCT Total # of Minutes Spent Total Time Spent with Patient: Total time spent is greater than 50% in coordination of care (as documented) at patient's floor/unit and/or counseling patient: Coding Level of Care Code 64059 Subseq Hosp Care Lvl 2 Diagnoses Acute kidney injury N17.9 Proteinuria R80.9 Hypertension I10 Bilateral edema of lower extremity R60.0 History of colon cancer Z85.038 Metabolic acidosis E87.2 Hyperkalemia E87.5
[2021-11-26] MEDS: HEPARIN SOD 5,000 UNIT/0.5 ML VIAL SQ SCH ×2 (05:21→21:14)
[2021-11-26] MEDS ORDERED: SODIUM CHLORIDE 0.9% 1000ML 1,000 ML IV PRN (07:00)
[2021-11-26] MEDS ORDERED: HEPARIN SOD (PORCINE) 1000 UNIT/ML IV ONE (07:00)
--- NOTE | 2021-11-26 07:55 | Hospitalist Progress Note ---
Date of Service November 26, 2021 Assessment & Plan (1) Acute kidney injury: Plan: RPGN/nephrotic syndrome, pt is s/p covid and was on aceI and nsaids No obstructive uropathy seen on CT A/P. no renal artery stenosis on renal artery duplex Hold lisinopril, HCTZ and Celebrex Pending workup including JUSTIN reflex, ANCAs, C3/C4, Hep B surface Ab, core IgM, Hem C IgG, phospholipase A2 receptor Ab, 24 hour urine electrophoresis, serum cryoglobulin, immunofixation and protein electrophoresis Solu-Medrol 500mg IV [11/22] - [11/24] Prednisone 60 mg started 11/25, GI PPx with Protonix continued, Bactrim ss W nephrology - started in patient dialysis , planning on renal biopsy as outpatient, dialysis started [11/24] (2) Proteinuria: Plan: As above (3) Hypertension: Plan: Continue amlodipine 5mg PO daily - will hold for dialysis days, possible will not need this on discharge if dialysis fluid management can sort out his Holding ACEi and HCTZ (4) Bilateral edema of lower extremity: Plan: Suspected nephrotic syndrome +/- venous insufficiency Continue PABLO arceo (5) History of colon cancer: (6) Metabolic acidosis: Plan: resolving with treatment of renal failure (7) Hyperkalemia: Plan: resolved Plan VTE Prophylaxis - heparin 5000 units SQ q12h Diet - dialysis renal Disposition - continue admission to med/tele Admission and Anticipated Discharge Date Admission Date: November 21, 2021 Subjective pt seen in the company of his , he is tearful at times, has improving peripheral edema, is disappointed that hepatitis labs are pending Review of Systems Review of Systems: Mild distress and fatigue no headache, no visual changes no speech or swallowing issues Has some right-sided neck pain just superior to his insertion site for his IJ dialysis catheter there is no increased redness or swelling no chest pain, pressure or palpitations no shortness of breath, cough or wheezes no abdominal pain, nausea or vomiting, diarrhea or constipation no dysuria, hematuria or frequency no focal joint pain or swelling no back pain, CVA tenderness or radicular pain no bruising, bleeding or rashes no focal signs of weakness or numbness or altered sensation no complaints of anxiety or depression.. Physical Exam Physical Exam: The patient appeared well nourished and normally developed. Vital signs as documented. Head exam is normocephalic atraumatic Neck is without JVD, thyromegaly, or carotid bruits The right-sided stab wound is well-healed there is no fluctuance lymphadenopathy there is some tenderness which could just be local wound healing. Lungs are clear to auscultation, no focal loss of breath sounds Cardiac exam, Rhythm is regular.. No murmurs, rubs or gallops. Abdominal exam reveals normal bowel sounds, soft non tender, no masses Extremities are 1+ edematous and both pedal pulses are present Neurologic exam is alert and oriented, no focal loss of strength or sensation Skin is without bruises or rashes Psychologically is without concerns for anxiety or depression.. Results & Data Results & Data ([facility]) Vital Signs (Past 12 Hours) Vital Signs Temp Pulse Pulse Resp BP Pulse Ox O2 Del Method 11/25/21 22:15 57 L 11/26/21 03:07 98.1 F 62 16 161/86 H 95 Room Air 11/26/21 01:09 57 L 11/25/21 22:56 97.7 F 52 L 16 174/99 H 94 Room Air PG Care Time/CCT Total # of Minutes Spent Total Time Spent with Patient: Total time spent is greater than 50% in coordination of care (as documented) at patient's floor/unit and/or counseling patient: Coding Level of Care Code 64550 Subseq Hosp Care Lvl 2 Diagnoses Acute kidney injury N17.9 Proteinuria R80.9 Hypertension I10 Bilateral edema of lower extremity R60.0 History of colon cancer Z85.038 Metabolic acidosis E87.2 Hyperkalemia E87.5
[2021-11-26] MEDS: PANTOprazole 40 MG TAB PO SCH (08:02)
[2021-11-26] MEDS: predniSONE 20 MG TAB PO SCH (08:02)
[2021-11-26] MEDS: ATORVASTATIN 40 MG TAB PO SCH (08:03)
[2021-11-26 08:22] LABS: BUN Creatinine Ratio 14.2 (10-20); Calcium 7.2 mg/dl (8.5-10.1); Creatinine Clr Calc Pharmacy 13.3 ml/min; Est GFR (African American) 9.7 ml/min; Est GFR (Non-African American) 8.4 ml/min; Potassium 4.1 mmol/L (3.5-5.1)
--- NOTE | 2021-11-26 08:38 | Nephrology Progress Note ---
Date of Service November 26, 2021 Assessment & Plan (1) Acute kidney injury: Plan: * RPGN - nephrotic syndrome w/ abrupt decline in kidney function over 2 weeks. Baseline Cr 1.38 (11/07/21). No dyspnea or hemoptysis to suggest pulmonary renal syndrome. No systemic symptoms of vasculitis such as nasal congestion, oral ulceration, pleurisy, pericarditis, arthralgias or rash. Mild elevation of ESR (61 - 11/21/21) * Urine sediment w/ only low grade hematuria, no cellular casts * UPCR 10.0 * Patient had been taking Celebrex 3x/week due to arthralgias associated w/ recent COVID infection (08/2021). Lisinopril and Celebrex have been stopped * Patient has a remote h/o colon CA. FOBT ordered * DDx is broad and includes minimal change disease, membranous nephropathy, ANCA vasculitis, plasma cell disorder. Patient has no other clinical signs of active vasculitis. 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 I advised saving urine to monitor I&O's and reordered I&O's in EMR. Will recheck urine sediment * Completed Solumedrol 500 mg IV daily x3 days * Prednisone 60 mg daily started 11/25/21 * Continue Protonix 40 mg po daily * Continue Bactrim SS one po 3x/week (MWF) * I have called the community assistant at [facility]. He will contact Mr. Hopper and his to set up outpatient HD * Patient would like to have his renal biopsy performed at [facility] (has family in [place]). Order placed in EMR to have rn physician office staff schedule biopsy next week in [place] * Consider discharge w/ prednisone, protonix and bactrim once outpatient dialysis set up. Need to avoid celebrex/nsaids * FMLA form completed this am per patient request (2) Hypertension: Plan: * Improved following UF w/ HD Admission and Anticipated Discharge Date Admission Date: November 21, 2021 Subjective Mr. Hopper was evaluated in his hospital room this morning. He underwent R IJ THC insertion and tolerated his 2nd dialysis treatment without complication yesterday. He currently denies fever, angina, dyspnea, pleurisy or uremic symptoms. He requests that I complete a FMLA form for his employer this am. Review of Systems Constitutional: no fever Eyes: no problem reported Ear, Nose, Mouth, Throat: no problem reported Respiratory: no dyspnea Cardiovascular: no chest pain and no dyspnea at rest Gastrointestinal: no abdominal pain, no vomiting and no diarrhea/loose stools Musculoskeletal: no problem reported Physical Exam Constitutional: WD/WN, vitals as above Eyes: PERRL, conjunctivae normal, anicteric sclerae ENMT: external ear and nose normal, oropharynx normal Neck: trachea midline, no thyromegaly Respiratory: normal respiratory effort, lungs clear to auscultation Cardiovascular: Rate/Rhythm: regular rate and regular rhythm Gastrointestinal (Abdomen): normal bowel sounds, soft, nontender, no hepatosplenomegaly Neurologic: Speech / Cognition: normal cognition Results & Data ([facility]) Vital Signs (Past 12 Hours) Vital Signs Temp Pulse Pulse Resp BP BP Pulse Ox 11/26/21 08:15 36.6 C 59 L 20 157/88 H 97 11/25/21 22:15 57 L 11/26/21 03:07 36.7 C 62 16 161/86 H 95 11/26/21 01:09 57 L 11/25/21 22:56 36.5 C 52 L 16 174/99 H 94 O2 Del Method 11/26/21 08:15 Room Air 11/25/21 22:15 11/26/21 03:07 Room Air 11/26/21 01:09 11/25/21 22:56 Room Air Laboratory Results Laboratory Tests 11/21/21 11/22/21 11/22/21 18:13 06:35 11:17 Sodium Potassium Chloride Carbon Dioxide BUN Creatinine Glucose Calcium PEP Interpretation Pending Urine PEP Interpret Serum Immunofixation Pending Cryoglobulin Pending Cryoglobulin Cryocrit Pending JUSTIN Screen Pending Anti-Proteinase 3 Pending Anti-Myeloperoxidase Pending ANCA Pending Complement C3 Pending Complement C4 Pending Tot Complement (CH50) Pending Hepatitis B Ab, Qual Pending Hep B Core IgM Ab Pending Hepatitis C Ab (EIA) Pending Hep C Ab Signal/Cutoff Pending Phospholip A2 Rec IFA Pending Phospholip A2 Rec PRAKASH Pending 11/22/21 11/26/21 20:30 07:18 Sodium 132 L Potassium 4.1 Chloride 99 Carbon Dioxide 22 BUN 90 H D Creatinine 6.33 H* D Glucose 101 H Calcium 7.2 L PEP Interpretation Urine PEP Interpret Pending Serum Immunofixation Cryoglobulin Cryoglobulin Cryocrit JUSTIN Screen Anti-Proteinase 3 Anti-Myeloperoxidase ANCA Complement C3 Complement C4 Tot Complement (CH50) Hepatitis B Ab, Qual Hep B Core IgM Ab Hepatitis C Ab (EIA) Hep C Ab Signal/Cutoff Phospholip A2 Rec IFA Phospholip A2 Rec PRAKASH PG Care Time/CCT Total # of Minutes Spent Total Time Spent with Patient: Total time spent is greater than 50% in coordination of care (as documented) at patient's floor/unit and/or counseling patient: Coding Level of Care Code 03597 Subseq Hosp Care Lvl 3 Diagnoses Acute kidney injury N17.9 Hypertension I10 Hypertension type: unspecified (1) Hypertension Hypertension type: unspecified Qualified Code(s): I10 - Essential (primary) hypertension
[2021-11-26] MEDS ORDERED: SULFA/TRIMETH 400/80MG TAB PO SCH (09:00)
[2021-11-26 10:07] LABS: Abnormal Protein Band 1 DNR mg/24 h (NONE DETECTED); Abnormal Protein Band 2 DNR mg/24 h (NONE DETECTED); Abnormal Protein Band 3 DNR mg/24 h (NONE DETECTED); Creatinine, 24 hr Urine 1.14 g/24 h (0.50-2.15); Protein, Urine 24 Hour 9412 mg/24 h (<150); Ur Protein/Creatinine Rat mg/g 8227 mg/g creat (<100); Urine Protein/Creatinine Ratio 8.227 (<0.100)
[2021-11-26] MEDS ORDERED: INFLUENZA VACCINE HIGH DOSE PF 65+ 0.7 ML SYR IM ONE (14:32)
[2021-11-26 19:02] LABS: Appearance Urine Cloudy (Clear); Bacteria Urine Automated Negative (Negative); Bilirubin Urine Negative (Negative); Blood Urine 2+ (Negative); Color Urine Yellow; Epithelial Cell Urine Auto >30 /lpf (0-5); Glucose Urine UA 2+ (Negative); Ketones Urine Negative (Negative); Leukocyte Esterase Urine Negative (Negative); Nitrite Urine Negative (Negative); Protein Urine 4+ (Negative); Specific Gravity Urine 1.022 (1.000-1.030); Urobilinogen Urine Negative (Negative); pH Urine 6.5 (4.5-7.5)
[2021-11-26 19:11] LABS: RBC Urine Automated 0-4 /hpf (0-4)
[2021-11-27] MEDS: ACETAMINOPHEN 325 MG TAB PO PRN (04:03)
--- NOTE | 2021-11-27 08:34 | Nephrology Progress Note ---
Date of Service November 27, 2021 Assessment & Plan (1) Acute kidney injury: Plan: * RPGN - nephrotic syndrome w/ abrupt decline in kidney function over 2 weeks. Baseline Cr 1.38 (11/07/21). No dyspnea or hemoptysis to suggest pulmonary renal syndrome. No systemic symptoms of vasculitis such as nasal congestion, oral ulceration, pleurisy, pericarditis, arthralgias or rash. Mild elevation of ESR (61 - 11/21/21) * Urine sediment w/ only low grade hematuria, no cellular casts * UPCR 10.0 * Patient had been taking Celebrex 3x/week due to arthralgias associated w/ recent COVID infection (08/2021). Lisinopril and Celebrex have been stopped * Patient has a remote h/o colon CA. FOBT ordered * DDx is broad and includes minimal change disease, membranous nephropathy, ANCA vasculitis, plasma cell disorder. Patient has no other clinical signs of active vasculitis. 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 Outpatient HD will be started at [facility] once hepatitis results are available * I have called [facility] lab. 11/21/21 hepatitis studies were sent to [facility]. Results should be available by the end of the week * Patient would like to have his renal biopsy performed at [facility] (has family in [place]). I have asked my medical information officer staff to schedule the biopsy * Consider discharge w/ prednisone, protonix and bactrim once outpatient dialysis set up. Need to avoid celebrex/nsaids * FMLA form has been completed * Order provided to staff training and development manager to allow patient and his spouse to spend time in the healing garden * Will plan for HD tomorrow as inpatient unless hepatitis results become available (2) Hypertension: Plan: * Improved following UF w/ HD Admission and Anticipated Discharge Date Admission Date: November 21, 2021 Subjective Mr. Hopper was evaluated in his hospital room this morning. He completed his 3rd dialysis treatment yesterday without complication. Total 5 L UF obtained since starting dialysis. Mr. Hopper currently denies fever, angina, dyspnea, pleurisy or uremic symptoms. He requests permission to visit the [facility] with his spouse Review of Systems Constitutional: no fever Eyes: no problem reported Ear, Nose, Mouth, Throat: no problem reported Respiratory: no dyspnea Cardiovascular: no chest pain and no dyspnea at rest Gastrointestinal: no abdominal pain, no vomiting and no diarrhea/loose stools Musculoskeletal: no problem reported Physical Exam Constitutional: WD/WN, vitals as above Eyes: PERRL, conjunctivae normal, anicteric sclerae ENMT: external ear and nose normal, oropharynx normal Neck: trachea midline, no thyromegaly Respiratory: normal respiratory effort, lungs clear to auscultation Cardiovascular: Rate/Rhythm: regular rate and regular rhythm Gastrointestinal (Abdomen): normal bowel sounds, soft, nontender, no hepatosplenomegaly Neurologic: Speech / Cognition: normal cognition Results & Data ([facility]) Vital Signs (Past 12 Hours) Vital Signs Temp Pulse Pulse Resp BP Pulse Ox O2 Del Method 11/27/21 07:30 36.6 C 56 L 18 160/93 H 95 Room Air 11/27/21 06:15 53 L 11/27/21 02:57 37.0 C 59 L 18 169/90 H 96 Room Air 11/27/21 00:32 51 L 11/26/21 22:56 36.7 C 59 L 18 170/91 H 95 Room Air Laboratory Results Laboratory Tests Laboratory Tests 11/27/21 08:14 Sodium 132 L Potassium 3.9 Chloride 98 Carbon Dioxide 26 BUN 60 H D Creatinine 5.31 H* D Glucose 125 H Calcium 7.1 L 11/21/21 11/22/21 11/22/21 18:13 06:35 11:17 Serum Immunofixation Pending Cryoglobulin Pending Cryoglobulin Cryocrit Pending JUSTIN Screen Pending Anti-Proteinase 3 Pending Anti-Myeloperoxidase Pending ANCA Pending Complement C3 Pending Complement C4 Pending Tot Complement (CH50) Pending Hepatitis A IgM Ab Hepatitis B Ab, Qual Pending Hep Bs Antigen Hep Bs Ag Confirmation Hep B Core IgM Ab Pending Hepatitis C Ab (EIA) Pending Hep C Ab Signal/Cutoff Pending Phospholip A2 Rec IFA Pending Phospholip A2 Rec PRAKASH Pending 10/06/22 08:14 Serum Immunofixation Cryoglobulin Cryoglobulin Cryocrit JUSTIN Screen Anti-Proteinase 3 Anti-Myeloperoxidase ANCA Complement C3 Complement C4 Tot Complement (CH50) Hepatitis A IgM Ab Pending Hepatitis B Ab, Qual Hep Bs Antigen Pending Hep Bs Ag Confirmation Pending Hep B Core IgM Ab Hepatitis C Ab (EIA) Hep C Ab Signal/Cutoff Phospholip A2 Rec IFA Phospholip A2 Rec PRAKASH The urine 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 PG Care Time/CCT Total # of Minutes Spent Total Time Spent with Patient: Total time spent is greater than 50% in coordination of care (as documented) at patient's floor/unit and/or counseling patient: Coding Level of Care Code 78693 Subseq Hosp Care Lvl 3 Diagnoses Acute kidney injury N17.9 Hypertension I10 Hypertension type: unspecified (1) Hypertension Hypertension type: unspecified Qualified Code(s): I10 - Essential (primary) hypertension
[2021-11-27] MEDS: ATORVASTATIN 40 MG TAB PO SCH (08:58)
[2021-11-27] MEDS: PANTOprazole 40 MG TAB PO SCH (08:58)
[2021-11-27] MEDS: predniSONE 20 MG TAB PO SCH (08:58)
[2021-11-27] MEDS: HEPARIN SOD 5,000 UNIT/0.5 ML VIAL SQ SCH (08:59)
[2021-11-27 09:02] LABS: BUN Creatinine Ratio 11.3 (10-20); Calcium 7.1 mg/dl (8.5-10.1); Creatinine Clr Calc Pharmacy 15.8 ml/min; Est GFR (Non-African American) 10.4 ml/min; Potassium 3.9 mmol/L (3.5-5.1)
--- NOTE | 2021-11-27 19:37 | Discharge Summary ---
Date of Service November 27, 2021 Admission HPI Per Admitting Provider Mack Hopper is a 66 year old male who presents to the ER with bilateral extremity edema, increasing fatigue, shortness of breath on exertion and chest tightness. He was sent in to the ER by his door cutter due to worsening renal function. His symptoms have been present and getting worse for the last 2 weeks despite decreasing his salt intake. He also started taking his blood pressure measurements at home and they have been elevated since 2 weeks ago. He was recently seen in the emergency room November 07 for bilateral lower extremity swelling, intermittent chest pain and cough. TTE showed LVEF 60-65% wi th no significant valve pathology and no regional wall abnormalities. Creatinine was 1.38 at that time. He was started on hydrochlorothiazide 25mg PO daily (ran out two days ago) for the lower extremity edema although no significant pulmonary edema was noted on CXR at that time. He followed up with cardiology 2 days ago and did not feel his lower extremity edema was due to cardiac issue with his weight being up 15 lb. On repeat labs on November 19 his creatinine had increased to 3.19 with BUN 74 while taking the hydrochlorothiazide. Symptomatically he has been getting worse with increasing fatigue, edema, weight and decreased urination. He reports using Celebrex intermittently for chronic back pain - stopped taking this on Wednesday due to worsening renal function. Before then he would take it 2-3 times a week. This is on a background of having COVID-19 pneumonia in August where he was symptomatic for 10 days. He was given Paxlovid at that time. He reports having frothy urine following this which has become more prominent the last 2 weeks. Apart from the hydrochlorothiazide the only new medication he has started was glucosamine which he started two weeks ago - however he has taken this before. Principal Diagnosis acute renal failure new start dialysis Discharge Exam The patient appeared stable Vital signs as documented. Lungs are clear to auscultation and appear unlabored Cardiac exam, Rhythm is regular.. No murmurs, rubs or gallops. Abdominal exam reveals normal bowel sounds, soft non tender, no masses Extremities are nonedematous and both pedal pulses are normal. Neurologic exam is alert and oriented, no focal loss of strength or sensation Skin is without bruises or rashes Psychologically is without concerns for anxiety or depression. Discharge Data Allergies Allergy/AdvReac Type Severity Reaction Status Date / Time No Known Allergies Allergy Unverified 03/26/13 13:42 Consultations 11/21/21 10:26 ED Decision to Admit Stat 11/21/21 11:47 Consult Nephrology Routine 11/22/21 10:03 Consult Vascular Surgery Routine Procedures Performed Operation Date: 11/24/21 10:55 Actual Procedures p Perm Catheter Placement Right Jugular Approach, Ultrasound Localization of Right Jugular Vein, Fluoroscopy for Positioning, Moderate Sedation [id number] 1138(Right) - Patricio Ellington MD Ordered Studies 11/21/21 10:25 CT abd pelvis wo con Stat 11/21/21 17:49 US duplex renal artery Routine 11/24/21 09:03 EV cvc insrt tunnel 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 no renal artery stenosis on renal artery duplex stop lisinopril, HCTZ and Celebrex Pending workup including JUSTIN reflex, ANCAs, C3/C4, Hep B surface Ab, core IgM, Hem C IgG, phospholipase A2 receptor Ab, 24 hour urine electrophoresis, serum cryoglobulin, immunofixation and protein electrophoresis Solu-Medrol 500mg IV [11/22] - [11/24] Prednisone 60 mg started 11/25, GI PPx with Protonix continued, Bactrim ss [facility] nephrology - started in patient dialysis , planning on renal biopsy as outpatient, dialysis started [11/24] (2) Proteinuria: As above (3) Hypertension: Continue amlodipine 5mg PO daily (4) Bilateral edema of lower extremity: Suspected nephrotic syndrome +/- venous insufficiency Continue PABLO hose (5) History of colon cancer: (6) Metabolic acidosis: resolving with treatment of renal failure (7) Hyperkalemia: resolved Plan Diet - dialysis renal Total Time Total Time Spent Total Time Spent (In Minutes): It required greater than 30 minutes to prepare this patient for discharge Discharge Plan Discharge Items Patient Disposition: Home - Self-Care Reason For Visit: ACUTE RENAL FAILURE Discharge Diagnosis: acute kidney failure Activity: Per Instructions section Non-emergency contact: Primary Care Provider and Wrecking Supervisor Call non-emergency contact if: your symptoms worsen Follow-up/Referrals: Abelardo Kirkland MD [Primary Care Provider] - 12/01/21 11:10 am Diet: Dialysis Renal Diet Comment: limit fluid intake, read info about diet changes Addtl Attending Provider Instructions: please follow up with dialysis as previously scheduled Pending Studies at Discharge: Yes Studies:: remainder of blood work about renal function Stand-Alone Forms: My [facility], Smoking Cessation Medications and DC Order Prescriptions: New sulfamethoxazole-trimethoprim [Bactrim] 400-80 mg Tablet 1 tab PO MoWeFr Qty: 15 0RF prednisone 20 mg Tablet 60 mg PO DAILY Qty: 90 2RF amlodipine [Norvasc] 5 mg Tablet 5 mg PO QAM Qty: 30 3RF pantoprazole 40 mg Tablet,Delayed Release (Dr/Ec) 40 mg PO QAM Qty: 3 2RF Continued atorvastatin 40 mg tablet 40 mg PO DAILY Discontinued lisinopril 10 mg tablet 10 mg PO DAILY hydrochlorothiazide 25 mg tablet 25 mg PO DAILY Qty: 14 0RF Discharge Orders: Discharge Order (Routine); Ordered 11/27/21 Ordered By: Krzysztof Arnold Admission Data Admit Date/Time: 11/21/21 11:38 Attending Provider: Krzysztof Arnold Admit Provider: Elías Dalton Primary Care Provider: Abelardo Kirkland Other Providers: Elías Dalton ; Grabiel Johnson ; Patricio Ellington Other Interventions: Discharge Summary Assessment (RN) Last Done: 11/27/21 13:09 Coding Level of Care Code D/C DAY MANAGEMENT >30 MINS Diagnoses Acute kidney injury N17.9 Proteinuria R80.9 Hypertension I10 Bilateral edema of lower extremity R60.0 History of colon cancer Z85.038 Metabolic acidosis E87.2 Hyperkalemia E87.5
[2021-11-28] MEDS ORDERED: HEPARIN SOD (PORCINE) 1000 UNIT/ML IV ONE (07:00)
[2021-11-28] MEDS ORDERED: SODIUM CHLORIDE 0.9% 1000ML 1,000 ML IV PRN (07:00)
[2021-11-28 08:12] LABS: Complement C3 177 mg/dL (82-185); Complement Total(CH50) >60 U/mL (31-60)
[2021-11-28 16:01] LABS: HBSAG NON-REACTIVE (NON-REACTIVE); Hepatitis A Antibody IgM NON-REACTIVE (NON-REACTIVE); Hepatitis B Core Antibody IgM NON-REACTIVE (NON-REACTIVE)
[2021-11-28 20:01] LABS: % Cryocrit DNR; Alpha 1 Globulin 0.3 g/dL (0.2-0.3); Alpha 2 Globulin 1.1 g/dL (0.5-0.9); Beta-1-Globulin 0.3 g/dL (0.4-0.6); Beta-2-Globulin 0.6 g/dL (0.2-0.5); Cryoglobulin, QL Negative (Negative); Gamma Globulin 0.8 g/dL (0.8-1.7); Monoclonal Protein Band 1 DNR g/dL (NONE DETECTED); Monoclonal Protein Band 2 DNR g/dL (NONE DETECTED); Monoclonal Protein Band 3 DNR g/dL (NONE DETECTED); Total Protein 5.1 g/dL (6.1-8.1)
[2021-12-04 00:37] LABS: ANCA Screen Negative (Negative); Anti Nuclear Antibody Screen NEGATIVE (NEGATIVE); Hepatitis B Core Antibody IgM NON-REACTIVE (NON-REACTIVE); Myeloperoxidase Ab <1.0 AI (<1.0); Proteinase-3 AB <1.0 AI (<1.0)
== END 2021-11-27 13:40 | disposition home or self-care (01) | DRG 674 ==
LOC: ED 09:03 → EDINP 11:38 → SUATTDRO 11:38 → 2N 14:15